=== PATIENT | male | born 1955 | race Caucasian/White ===

== ENCOUNTER → 2021-06-11 14:02 | Outpatient (CLI) | payer MEDICARE, BC, SELFPAY | PROVIDERS: Visit Provider Internal Medicine Gastroenterology | DX: Z01.812 Encounter for preprocedural laboratory examination (principal); Z11.52 Encounter for screening for COVID-19; Z12.11 Encounter for screening for malignant neoplasm of colon | CPT/HCPCS: U0003 ==

== ENCOUNTER 2021-06-14 10:46 | Day surgery (SDC) | payer MEDICARE, BC, SELFPAY ==
[2021-06-09 11:39] VITALS: BMI 28.1
[2021-06-14 11:51] VITALS: BP 130/85; PULSE 75; RESP 18; TEMP 37.2; O2SAT 98
[2021-06-14 12:21] VITALS: O2SAT 100
--- NOTE | 2021-06-14 12:40 | P.PN_ITS ---
[facility] Anesthesia Checklist - Structural Data Admitted From: Home Planned Operative Procedure/s: colonoscopy Consent for Planned Operative Procedure(s) Verified: Yes - Airway Assessment C-Spine Mobility Assessed: Yes TMJ Mobility Assessed: Yes Dentition: Good Dentition - Neurological Assessment Level of Consciousness: Awake, Alert, Appropriate - Anesthesia Plan Anesthesia Risk discussed: Yes Anesthesia Plan: Verified ASA Class: II Anesthesia Type: MAC [facility] History I have reviewed the patient's past medical history: Yes Medical History: Denies:: Cancer, Diabetes Mellitus Type 1, Diabetes Mellitus Type 2, MRSA, Seizures *Have you ever received a pneumonia vaccine?: Yes *Have you received a flu vaccine this season?: Yes Anesthesia experience/problems:: none Amputation: No Fractures: No - *Social History Smoking Status: Never smoker Alcohol Intake: never Substance Use Type: denies use *Occupational Status:: employed Housing: house *Travel in the last 8 weeks: None Family Hx:: No significant family history
--- NOTE | 2021-06-14 13:05 | P.PCN_ITS ---
[facility] Procedure Note Procedure Note:: Colonoscopy Procedure Report: Colonoscopy Endoscopist: Malick Norton II, MD Referring physician: Erick Siegel MD Date of Procedure: June 14, 2021 Equipment: Olympus 190 variable stiffness pediatric colonoscope Sedation: MAC sedation Indication: Mr. Trammell is a 66-year-old gentleman who is here for high risk screening colonoscopy. His father had colon cancer in his 70s. His paternal grandmother had colon cancer in her 60s. It has been more than 10 years since the patient's previous colonoscopy which was normal. The patient reports no abdominal pain, weight loss, change in his bowel habits or rectal bleeding. Procedure: Prior to the procedure, a history and physical exam was performed, and patient's medications and allergies were reviewed. The risks, benefits and alternatives of the sedation and procedure were discussed with the patient. All questions were answered and informed consent was obtained. The patient was brought to the procedure room. Patient identification and proposed procedure were verified by the physician and the nurse. The patient was placed in a left lateral decubitus position and the scope was passed under direct vision. Throughout the procedure, the patient's blood pressure, pulse, and oxygen saturations were monitored continuously. The colonoscopy was accomplished without difficulty. The patient tolerated the procedure well. Findings: On digital rectal examination there was normal rectal tone. There were no external hemorrhoids. The prostate was 2+, smooth, soft, symmetric without nodules. The colonoscope was introduced through the anal canal to the rectum and advanced to the cecum. The ileocecal valve and appendiceal orifice were identified. The scope was advanced a short distance into the ileum which appeared grossly normal. The scope was then withdrawn into the colon. The cecum, ascending and transverse colon and mucosa were grossly normal. There were scattered diverticuli throughout the descending and sigmoid colon (LEFT colon). The rectum itself was normal. Upon retroflexion within the rectum there were grade 1-2 internal hemorrhoids. The preparation was excellent throughout with [place] Preparation Score of 9. The cecal time was 10 minutes. Impression: 1. Mild left-sided diverticulosis 2. Grade 1-2 internal hemorrhoids Plan: Based upon the patient's family history, I would recommend repeat surveillance colonoscopy again in 5 years. I would encourage bulk fiber supplementation on a long-term daily maintenance b asis.
[2021-06-14 13:10] VITALS: BP 100/59; PULSE 80; RESP 12; TEMP 36.6; O2SAT 94
[2021-06-14 13:20] VITALS: BP 103/64; PULSE 64; RESP 16; O2SAT 96
[2021-06-14 13:30] VITALS: BP 115/74; BP 119/76; PULSE 59; PULSE 60; RESP 16; TEMP 36.6; O2SAT 97; O2SAT 98
== END 2021-06-14 13:40 | disposition home or self-care (01) ==
LOC: OUTP 10:50
PROVIDERS: PCP Family Medicine; Visit Provider Internal Medicine Gastroenterology
PROC: 0DJD8ZZ Inspection of Lower Intestinal Tract, Via Natural or Artificial Opening Endoscopic (ICD-10-PCS; CPT 45378; principal; 2021-06-14 12:00)
DX: Z12.11 Encounter for screening for malignant neoplasm of colon (principal); Z80.0 Family history of malignant neoplasm of digestive organs; K57.30 Diverticulosis of large intestine without perforation or abscess without bleeding; K64.0 First degree hemorrhoids; Z88.2 Allergy status to sulfonamides; Z79.899 Other long term (current) drug therapy
CPT/HCPCS: G0105

== ENCOUNTER → 2021-10-08 12:12 | Outpatient (CLI) | payer BC, SELFPAY ==
--- NOTE | 2021-10-08 12:56 | CA_ITS ---
APPROVED REPORT Park Keeper: JOSE MIGUEL Laterality: Bilateral Risk Factors TIA/CVA History TIA with visual disturbance Doppler Spectral Velocity Analysis ECA (R) 105.30/22.50 cm/s ECA (L) 93.50/15.00 cm/s dICA (R) 62.00/26.70 cm/s dICA (L) 94.30/30.70 cm/s Katherine (R) 61.60/25.70 cm/s Katherine (L) 98.80/36.70 cm/s pICA (R) 52.60/22.20 cm/s pICA (L) 74.80/26.90 cm/s dCCA (R) 61.10/16.20 cm/s dCCA (L) 82.80/22.20 cm/s pCCA (R) 124.60/30.10 cm/s pCCA (L) 144.50/36.60 cm/s Vert (R) 42.40/14.80 cm/s Vert (L) 41.90/16.50 cm/s ICA/CCA 1.02 ICA/CCA 1.19 Findings Duplex evaluation demonstrates stenosis of the right proximal internal carotid artery <20% with PSV <140 cm/sec, EDV <100 cm/sec, and IC/CC Ratio <4.0. Duplex evaluation demonstrates stenosis of the left proximal internal carotid artery <20% with PSV <140 cm/sec, EDV <100 cm/sec, and IC/CC Ratio <4.0. Conclusion Duplex evaluation demonstrates stenosis of the right proximal internal carotid artery <20% with PSV <140 cm/sec, EDV <100 cm/sec, and IC/CC Ratio <4.0. Duplex evaluation demonstrates stenosis of the left proximal internal carotid artery <20% with PSV <140 cm/sec, EDV <100 cm/sec, and IC/CC Ratio <4.0. Electronically signed by : Scout Vega MD 10/08/2021 14:42:05
[2021-10-08 13:06] LABS: Blood Urea Nitrogen 16 mg/dl (9-20); Estimated Glomerular Filt Rate 75 ml/min (>60); GFR (African American) 91 ML/MIN (>60)
--- NOTE | 2021-10-08 13:26 | MR_ITS ---
PROCEDURE: MR HEAD/BRAIN WO/W CON CLINICAL INDICATION: TIA COMPARISON: No exams were available for comparison TECHNIQUE: Routine multiplanar multi echo sequences are performed without gadolinium enhancement. FINDINGS: No midline shift mass intracranial. Cerebellopontine, cerebellum, and brainstem have. There is generalized atrophy with more prominent atrophic changes in the posterior the posterior lobe on both sides right more extensive and right parietal superiorly. The pituitary, optic chiasm, corpus callosum, and craniocervical junction have an unremarkable appearance. There are few small nonspecific T2 white matter hyperintensities. No acute infarction No mastoid effusion or sinus air-fluid level. Expected flow void noted in the carotid arteries and vertebrobasilar system. IMPRESSION: 1. No acute intracranial findings. 2. Generalized atrophy. More prominent areas of atrophy are present in the posterior parietal region bilaterally and in the right parietal lobe superiorly. 3. No evidence of acute infarction Dictated by: Scout Vega MD 10/09/2021 09:09 Scout Vega MD in OV 10/09/2021 09:09
== END ==
PROVIDERS: PCP Family Medicine; Visit Provider Family Medicine
DX: G45.8 Other transient cerebral ischemic attacks and related syndromes (principal); R09.89 Other specified symptoms and signs involving the circulatory and respiratory systems
CPT/HCPCS: 36415; 70553; 82565; 84520; 93880; A9576

== ENCOUNTER → 2022-03-17 09:16 | Outpatient (CLI) | payer MEDICARE, BC, SELFPAY ==
[2022-03-17 10:06] LABS: Occult Blood,Stool Negative (Negative)
== END ==
LOC: LAB 09:20
PROVIDERS: Visit Provider Nurse Practitioner Family
DX: R19.7 Diarrhea, unspecified (principal); Z90.49 Acquired absence of other specified parts of digestive tract
CPT/HCPCS: 82272; 87045; 87177; G0328

== ENCOUNTER 2022-05-11 10:24 | Emergency (ER) | payer MEDICARE, BC, SELFPAY ==
[2022-05-11 10:35] VITALS: BP 150/84; PULSE 93; RESP 16; TEMP 37; O2SAT 98; BMI 32.5
[2022-05-11 10:45] VITALS: BP 150/84; PULSE 93; RESP 16; TEMP 37; O2SAT 98
--- NOTE | 2022-05-11 10:47 | HMH.EDUTC ---
[facility] – [place] Disposition Clinical Impression: Exposure to COVID-19 virus Disposition: Home, Self-Care Condition on Discharge: Good Instructions: DI for COVID-19 (Suspected or Confirmed ), Preventing the Spread of Coronavirus Discharge Instructions Additional Instructions: *Monitor Temp, Over the counter Motrin or Tylenol as directed/as needed Tylenol every 4 hours and Motrin every 6 hours (as long as your family doctor has told you that you can take it) for fever or pain. and straight to ER if unable to lower temp less than 101.0 after medication given Follow up IMMEDIATELY for new or worsening symptoms or no Noticeable improvement over the next 48-72 hours. 911 for difficulty breathing or swallowing You were tested for today for COVID19 your test result should be back in the next 24-48 hours, you may check your results on the [facility] My Health Portal Make sure to take your Vitamins Vit. C Vit D and Zinc if you can take them Referrals: Provider,Referral, MD [Primary Care Provider] - As needed Forms: Work/School Release Medical Decision Making - Ulices Inquiry Pt receiving controlled substance: No Ulices was queried for this patient: No Vital Signs: 05/11/22 10:35 Temperature 98.6 F Temperature Source Oral Pulse Rate [Right Brachial] 93 H Respiratory Rate 16 Blood Pressure [Right Arm] 150/84 H Blood Pressure Mean [Right Arm] 106 Blood Pressure Source [Right Arm] Automatic Cuff Blood Pressure Position [Right Arm] Sitting 02 Sat by Pulse Oximetry 98 Oxygen Delivery Method Room Air Orders (Tests/Meds): ORDERS Category Date Time Status Covid-19 Nasal PCR ([facility]) Routine Lab 05/11/22 10:39 Received [facility] – [place], [place] HPI - General Stated complaint: covid test Time Seen by Provider: 05/11/22 10:47 Mode of Arrival: Ambulatory Source of Information: Patient Limitations: No Limitations Description of Symptoms (Recalled from Triage Doc. by RN): COVID TEST D/T EXPOSURE. DENIES SYMPTOMS HEENT Symptoms (Recalled from RN notes): No Resp Symptoms (Recalled from RN notes): No Skin Symptoms (Recalled from RN notes): No MS Symptoms (Recalled from RN notes): No Functional Status (Recalled from RN notes): WNL - History of Present Illness Provider Complaint: Patient state that he was recently around mother that has tested positive for COVID States that he is not having any symptoms but due to exposure he wanted to get tested - Related Data Home Medications Medication Instructions Recorded Confirmed Omeprazole Magnesium [Prilosec Otc 20 mg PO DAILY 06/14/21 05/11/22 20mg Tab] Allergies Allergy/AdvReac Type Severity Reaction Status Date / Time Horse/Equine Containing Allergy Verified 05/11/22 10:45 Products Sulfa (Sulfonamide Allergy Verified 05/11/22 10:45 Antibiotics) - Worker's Comp Is this a Worker's Comp case?: No [facility] History - Hepatitis A Screen Attestation statement:: This patient has been screened for Hepatitis A risk factors. I have reviewed the patient's past medical history: Yes Medical History: Denies:: Cancer, Diabetes Mellitus Type 1, Diabetes Mellitus Type 2, MRSA, Seizures Amputation: No Fractures: No - Social History Smoking Status: Never smoker Alcohol Intake: never Substance Use Type: denies use Occupational Status: employed Housing: house Family Hx:: No significant family history ROS Obtained: Yes All systems reviewed & no additional complaints, Yes Systems reviewed as appropriate & no additional complaints - Constitutional Constitutional: Reports system reviewed and no additional complaints, except as docu, Denies body ache, Denies chills, Denies fever(s) - ENT Ears, Nose, Mouth, and Throat: Reports system reviewed and no additional complaints, except as docu, Denies nasal congestion, Denies nasal discharge, Denies sore throat - Cardiovascular Cardiovascular: Reports system reviewed and no additional complaints, except as docu - Respiratory Respiratory
== END 2022-05-11 10:50 | disposition home or self-care (01) ==
PROVIDERS: Emergency Provider Nurse Practitioner
DX: Z20.822 Contact with and (suspected) exposure to COVID-19 (principal)
CPT/HCPCS: 99212; C9803; G0463; U0003; U0005

== ENCOUNTER 2022-08-15 18:13 | Emergency (ER) | payer MEDICARE, BC, SELFPAY ==
[2022-08-15 19:10] VITALS: BP 146/85; PULSE 97; RESP 19; TEMP 37.3; O2SAT 96; BMI 28.8
--- NOTE | 2022-08-15 19:14 | EXP.UTC ---
Discharge Plan Disposition Patient Disposition: Home, Self-Care Condition: Good Prescriptions Prescriptions: New benzonatate [benzonatate] 100 mg capsule 100 mg PO TIDP PRN (Reason: Cough) Qty: 30 0RF ondansetron 4 mg Tablet,Disintegrating 4 mg PO Q8H PRN (Reason: Nausea) Qty: 20 0RF No Action omeprazole magnesium 20 MG tablet,delayed release (DR/EC) 20 mg PO DAILY Referrals Follow up/Referrals: Erick Siegel MD [Primary Care Provider] - See instructions Activity Restrictions/Add. Instructions Additional Instructions/Restrictions: Drink plenty of fluids. Take tylenol or ibuprofen for pain or fever. Take the medications as directed. Follow up with your regular doctor. GO TO THE ER FOR ANY WORSENING SYMPTOMS Quarantine until you know the results of your covid-19 test. Notify your school or workplace of your results and follow their instructions regarding return to work/school. Clinical Impressions Clinical Impression: COVID-19 Instructions Patient Instructions: Coronavirus Disease 2019, Preventing the Spread of Coronavirus Discharge Instructions Discharge ED Provider: Nilo Flores [facility] General Stated complaint: positive home covid test Time Seen by Provider: 08/15/22 19:14 History of Present Illness Provider Complaint: he states that for the past 2 days he has had sore throat, chills, body aches and low grade fever. He tested positive for covid-19 yesterday evening. He needs a pcr covid-19 test for his job. Related Data Home Medications Medication Instructions Recorded Confirmed omeprazole magnesium 20 mg 20 mg PO DAILY Heartburn 06/14/21 05/11/22 tablet,delayed release Previous Rx's Medication Instructions Recorded benzonatate 100 mg capsule 100 mg PO TIDP PRN Cough #30 caps 08/15/22 ondansetron 4 mg disintegrating 4 mg PO Q8H PRN Nausea #20 tabs 08/15/22 tablet Allergies Allergy/AdvReac Type Severity Reaction Status Date / Time Horse/Equine Containing Allergy Verified 05/11/22 10:45 Products Sulfa (Sulfonamide Allergy Verified 05/11/22 10:45 Antibiotics) [facility] Medical History Kidney stone Migraine Surgical History History of appendectomy Social History Smoking Status: Never smoker alcohol intake: never substance use type: denies use current occupational status: employed Travel in the last 8 weeks: None housing: house current occupational exposures/hazards: Yes ROS Obtained: Yes All systems reviewed & no additional complaints except as documented Constitutional Constitutional: Reports chills and Reports fever(s) Eyes Eyes: Denies eye discharge ENT Ears, Nose, Mouth, and Throat: Reports as per HPI Cardiovascular Cardiovascular: Denies chest pain Respiratory Respiratory: Denies chest congestion and Reports cough Gastrointestinal Gastrointestingal: Reports nausea; Denies abdominal pain, constipation, cramping, diarrhea or vomiting Musculoskeletal Musculoskeletal: Denies arthralgias Integumentary/Breasts Skin/Breast: Denies rash Neurologic Neurologic: Denies paresthesias Physical Exam General General appearance: alert and in no apparent distress Head Head exam: atraumatic, normocephalic and normal inspection Eye Eye exam: Present normal appearance, PERRL and EOMI ENT ENT exam: Present normal exam, normal oropharynx, mucous membranes moist, TM's normal bilaterally and normal external ear exam Neck Neck exam: Present normal inspection, full ROM and trachea midline; Absent meningismus or lymphadenopathy Chest Chest inspection: Present normal inspection and symmetric chest wall rise; Absent tenderness Respiratory Respiratory exam: Present normal lung sounds bilaterally; Absent respiratory distress Cardiovascular Cardiovascul
[2022-08-15 19:30] VITALS: BP 146/85; PULSE 97; RESP 19; TEMP 37.3; O2SAT 96
== END 2022-08-15 19:39 | disposition home or self-care (01) ==
PROVIDERS: Emergency Provider Nurse Practitioner Family; PCP Family Medicine
DX: U07.1 COVID-19 (principal); J02.9 Acute pharyngitis, unspecified; M79.10 Myalgia, unspecified site; R50.9 Fever, unspecified; G40.909 Epilepsy, unspecified, not intractable, without status epilepticus; Z79.899 Other long term (current) drug therapy; Z88.2 Allergy status to sulfonamides; Z88.8 Allergy status to other drugs, medicaments and biological substances
CPT/HCPCS: 99213; C9803; G0463; U0003; U0005

== ENCOUNTER 2022-08-20 01:29 | Emergency (ER) | payer MEDICARE, BC, SELFPAY ==
[2022-08-20] VITALS (7 sets, daily range): BP systolic 134–154; BP diastolic 77–96; PULSE 74–87; RESP 18–19; TEMP 36.4–36.6; O2SAT 97–100; BMI 29.6
--- NOTE | 2022-08-20 02:08 | XR_ITS ---
PROCEDURE INFORMATION: Exam: XR Chest Exam date and time: 08/20/2022 2:19 AM Age: 67 years old Clinical indication: Cough and shortness of breath and other: Weakness positive covid; Additional info: R/O pna TECHNIQUE: Imaging protocol: Radiologic exam of the chest. Views: 2 views. COMPARISON: CR CXR CHEST(2 VIEWS-NOT PORTABLE) 01/11/2016 9:08 AM FINDINGS: Lungs: Small focal eventration of the right anterior hemidiaphragm. Minimal bibasilar atelectasis. Pleural spaces: Unremarkable. No pleural effusion. No pneumothorax. Heart/Mediastinum: Normal. Bones/joints: Mild multilevel thoracic spine degenerative disc space narrowing and osteophyte formation. IMPRESSION: No acute cardiopulmonary abnormality.
--- NOTE | 2022-08-20 02:21 | ECG_ITS ---
APPROVED REPORT Exam: Resting ECG HR:74 bpm ECG Measurements Heart Rate 74 AXES TN 178 P 68 QRSd 98 QRS -5 QT 379 T 53 QTc 406 Conclusion SINUS RHYTHM POSSIBLE RIGHT VENTRICULAR CONDUCTION DELAY [RSR (QR) IN V1/V2] BORDERLINE ECG UNCONFIRMED REPORT Electronically signed by : Erick Vee MD 08/20/2022 17:38:20
[2022-08-20 02:23] LABS: Basophils # 0.1 K/mm3 (0-0.2); Basophils % 1.9 % (0.1-2.0); Eosinophils # 0.3 K/mm3 (0.0-0.4); Eosinophils % 5.8 % (0.1-12.0); Hematocrit 47.2 % (42.0-52.0); Hemoglobin 15.4 g/dL (14.1-18.0); Lymphocytes # 1.3 K/mm3 (0.7-4.5); Lymphocytes % 27.2 % (10-50); Mean Corpuscular HGB Conc 32.7 g/dL (31.8-35.4); Mean Corpuscular Hemoglobin 29.7 pg (27.0-31.2); Mean Platelet Volume 7.5 fl (7.4-10.4); Monocytes # 0.2 K/mm3 (0.1-1.0); Monocytes % 4.8 % (1.7-9.3); Neutrophils # 2.9 K/mm3 (1.8-7.8); Neutrophils % 60.3 % (37.0-80.0); Platelet Count 316 K/mm3 (142-424); Red Blood Count 5.19 M/mm3 (4.60-6.20); Red Cell Distribution Width 13.6 % (11.5-17.5); White Blood Count 4.8 K/mm3 (4.8-10.8)
[2022-08-20 02:34] LABS: Alanine Aminotransferase 46 U/L (12-78); Albumin Level 4.2 g/dl (3.5-5.0); Albumin/Globulin Ratio 1.4 (1.1-1.8); Alkaline Phosphatase 223 U/L (38-126); Anion Gap 17.7 mEq/L (5-15); Aspartate Amino Transferase 33 U/L (17-59); Bilirubin,Total 0.3 mg/dl (0.2-1.3); Blood Urea Nitrogen 11 mg/dl (9-20); Calcium 9.3 mg/dl (8.4-10.2); Carbon Dioxide 29 mmol/L (22.0-30.0); Chloride 96 mmol/L (98-107); Creatinine Clearance Estimated 91 mL/min (50-200); Estimated Glomerular Filt Rate 75 ml/min (>60); GFR (African American) 90 ML/MIN (>60); Glucose 115 mg/dl (74-100); Potassium 4.7 mmoL/L (3.5-5.1); Sodium 138 mmol/L (136-145); Total Protein,Serum 7.2 g/dl (6.3-8.2)
[2022-08-20 02:47] LABS: Troponin I < 0.01 ng/ml (0.00-0.034)
--- NOTE | 2022-08-20 02:53 | HMH.EDGENADL ---
Discharge Plan Disposition Patient Disposition: Home, Self-Care Condition: Good Chief Complaint: PAIN Prescriptions Prescriptions: No Action omeprazole magnesium 20 MG tablet,delayed release (DR/EC) 20 mg PO DAILY benzonatate [benzonatate] 100 mg capsule 100 mg PO TIDP PRN (Reason: Cough) Qty: 30 0RF ondansetron 4 mg Tablet,Disintegrating 4 mg PO Q8H PRN (Reason: Nausea) Qty: 20 0RF Referrals Follow up/Referrals: Erick Siegel MD [Primary Care Provider] - See instructions Activity Restrictions/Add. Instructions Additional Instructions/Restrictions: Please continue to monitor your symptoms at home. If your condition worsens or any other concerns arise, please return to the emergency department for reassessment. Follow-up with your primary care physician. Clinical Impressions Clinical Impression: COVID-19 Discharge ED Provider: Rosa Isela Montes General Adult HPI General Chief complaint: PAIN Stated complaint: Cough,SUAREZ,Tested Covid + 08/15/22 Time Seen by Provider: 08/20/22 02:18 Mode of Arrival: Family Vehicle Source of Information: Patient Limitations: No Limitations Description of Symptoms (Recalled from ER Triage Doc. by RN): Pt c/o Headache, runny nose, cough, cold sweats, and fatigue. States he was dx with covid on Monday (08/15) and began taking Paxlovid on Monday. Denies any SOA, chest pain, or dyspnea. He did take Mucinex DM last night. Denies any motrin or ibuprofen. History of Present Illness HPI narrative: Patient is a 67-year-old male without significant medical history presenting for chief complaint of fatigue, headache, runny nose, dry cough and cold sweats in the setting of COVID-19 diagnosis on 08/15. Patient started back Slo-Bid on Monday. Denies fever at home for the past several days, chest pain, shortness of breath, productive cough, hemoptysis, abdominal pain, decreased appetite, changes in GI/. He has been feeling nauseated and extremely fatigued. Related Data Home Medications Medication Instructions Recorded Confirmed omeprazole magnesium 20 mg 20 mg PO DAILY Heartburn 06/14/21 08/20/22 tablet,delayed release Previous Rx's Medication Instructions Recorded benzonatate 100 mg capsule 100 mg PO TIDP PRN Cough #30 caps 08/15/22 ondansetron 4 mg disintegrating 4 mg PO Q8H PRN Nausea #20 tabs 08/15/22 tablet Allergies Allergy/AdvReac Type Severity Reaction Status Date / Time Horse/Equine Containing Allergy Verified 05/11/22 10:45 Products Sulfa (Sulfonamide Allergy Verified 05/11/22 10:45 Antibiotics) PFSH PFSH Medical History Kidney stone Migraine Surgical History History of appendectomy Social History Smoking Status: Never smoker alcohol intake: never substance use type: denies use current occupational status: employed Travel in the last 8 weeks: None housing: house current occupational exposures/hazards: Yes ROS Obtained: Yes Systems reviewed as appropriate & no additional complaints except as documented Constitutional Constitutional: Reports body ache, Reports chills, Reports fatigue, Denies fever(s) and Reports headache(s) Eyes Eyes: Denies change in vision and Denies eye pain ENT Ears, Nose, Mouth, and Throat: Reports headache(s), Denies nasal congestion, Reports nasal discharge, Denies neck pain, Reports post nasal drip and Denies sore throat Cardiovascular Cardiovascular: Denies chest pain at rest, Denies chest pain with activity, Denies dyspnea on exertion, Denies leg edema and Denies palpitations Respiratory Respiratory: Denies shortness of breath, Reports non-productive cough, Denies dyspnea on exertion and Denies hemoptysis Gastrointestinal Gastrointestingal: Reports nausea; Denies abdominal pain, diarrhea or vomiting Genitourinary M
[2022-08-20 05:52] LABS: Troponin I < 0.01 ng/ml (0.00-0.034)
== END 2022-08-20 06:40 | disposition home or self-care (01) ==
PROVIDERS: Emergency Provider Emergency Medicine; PCP Family Medicine
DX: U07.1 COVID-19 (principal); G43.909 Migraine, unspecified, not intractable, without status migrainosus; R11.0 Nausea; M79.10 Myalgia, unspecified site; R53.82 Chronic fatigue, unspecified; R05.9 Cough, unspecified; R61 Generalized hyperhidrosis; Z79.899 Other long term (current) drug therapy; Z88.2 Allergy status to sulfonamides; Z88.8 Allergy status to other drugs, medicaments and biological substances; Z87.442 Personal history of urinary calculi
CPT/HCPCS: 71046; 80053; 84484; 85025; 93005; 96361; 96374; 96375; 99285

== ENCOUNTER 2024-01-30 10:27 | Outpatient (CLI) | payer MEDICARE, BC, SELFPAY ==
[2024-01-30 11:05] LABS: Basophils # 0.1 K/mm3 (0-0.2); Basophils % 0.7 % (0.1-2.0); Eosinophils # 0.2 K/mm3 (0.0-0.4); Eosinophils % 3.5 % (0.1-12.0); Hematocrit 45.8 % (42.0-52.0); Hemoglobin 15.4 g/dL (14.1-18.0); Lymphocytes # 1.7 K/mm3 (0.7-4.5); Lymphocytes % 25.4 % (10-50); Mean Corpuscular HGB Conc 33.5 g/dL (31.8-35.4); Mean Corpuscular Hemoglobin 31.7 pg (27.0-31.2); Mean Corpuscular Volume 94.5 fl (80-94); Mean Platelet Volume 7.8 fl (7.4-10.4); Monocytes # 0.3 K/mm3 (0.1-1.0); Monocytes % 4.9 % (1.7-9.3); Neutrophils # 4.3 K/mm3 (1.8-7.8); Neutrophils % 65.5 % (37.0-80.0); Platelet Count 330 K/mm3 (142-424); Red Blood Count 4.85 M/mm3 (4.60-6.20); Red Cell Distribution Width 13.6 % (11.5-17.5); White Blood Count 6.6 K/mm3 (4.8-10.8)
[2024-01-30 11:25] LABS: Chloride 101 mmol/L (98-107); Sodium 135 mmol/L (136-145)
[2024-01-30 11:26] LABS: Potassium 5.3 mmoL/L (3.5-5.1)
[2024-01-30 11:28] LABS: Alanine Aminotransferase 40 U/L (12-78); Albumin Level 4.4 g/dl (3.5-5.0); Alkaline Phosphatase 96 U/L (38-126); Anion Gap 11.3 mEq/L (5-15); Aspartate Amino Transferase 32 U/L (17-59); Bilirubin,Direct 0.2 mg/dl (0.0-0.4); Bilirubin,Indirect 0.2 mg/dL (0.0-0.9); Bilirubin,Total 0.4 mg/dl (0.2-1.3); Bilirubin,Unconjugated 0.2 mg/dL (0.0-1.1); Blood Urea Nitrogen 20 mg/dl (9-20); Calcium 9.9 mg/dl (8.4-10.2); Carbon Dioxide 28 mmol/L (22.0-30.0); Cholesterol 239 mg/dl (140-200); Estimated Glomerular Filt Rate 55 ml/min (>60); GFR (African American) 67 ML/MIN (>60); Glucose 92 mg/dl (74-100); Total Protein,Serum 6.9 g/dl (6.3-8.2); Triglycerides 200 mg/dl (30-150); VLDL Cholesterol 40 mg/dL (0-40)
[2024-01-30 11:29] LABS: Chol/HDL Ratio 5.6 (1-3.5); HDL Cholesterol 43 mg/dl (40-60)
[2024-01-30 11:43] LABS: Free T4 (Free Thyroxine) 1.45 ng/dl (0.78-2.19)
[2024-01-30 11:48] LABS: Direct LDL Cholesterol 116.67 mg/dL (100-129)
[2024-01-30 12:00] LABS: Thyroid Stimulating Hormone 1.16 uIU/mL (0.465-4.68)
== END 2024-01-30 23:59 ==
LOC: LAB 10:28
PROVIDERS: PCP Internal Medicine; Visit Provider Nurse Practitioner Family
DX: I10 Essential (primary) hypertension (principal); R06.00 Dyspnea, unspecified; R42 Dizziness and giddiness; R94.31 Abnormal electrocardiogram [ECG] [EKG]
CPT/HCPCS: 36415; 80048; 80061; 80076; 83735; 84439; 84443; 85025

== ENCOUNTER 2024-02-07 08:47 | Outpatient (CLI) | payer BC, SELFPAY ==
--- NOTE | 2024-02-07 09:03 | US_ITS ---
FINAL REPORT CLINICAL HISTORY: RUQ PAIN COMPARISON: None FINDINGS: Sonographic images of the right upper quadrant were obtained. The pancreas is partially obscured. There is fatty infiltration of the liver. The gallbladder has been surgically resected. There is no evidence of biliary ductal dilatation.The common duct measures 3 mm. Limited images of the right kidney are unremarkable. IMPRESSION: Fatty infiltration of the liver. Prior cholecystectomy. Reviewed, Interpreted and Dictated by Yogesh Craig MD Transcribed by Meg Sanchez Authenticated and [facility]
== END 2024-02-07 23:59 ==
LOC: RAD 08:48
PROVIDERS: PCP Internal Medicine; Visit Provider Internal Medicine
DX: R10.11 Right upper quadrant pain (principal)
CPT/HCPCS: 76705

== ENCOUNTER 2024-02-15 10:51 | Outpatient (CLI) | payer BC, SELFPAY ==
--- NOTE | 2024-02-15 10:51 | NM_ITS ---
APPROVED REPORT Exam: Nuclear Stress Test Indication: soa..fatigue Patient Location: Outpatient Stress Tech: Rashmi Gerard [place] Tech:HUANG Harris RT(R)(N) Ht: 5 ft 7 in Wt: 200 lbs HR: 79 bpm BP: 132/89 mmHg BSA: 2.02 m2 TID: 0.81 BMI: 31.3 History: soa..fatigue Procedure: Patient exercised on Reid protocol 5 minutes and sec, resting heart rate 79 bpm, resting blood pressure 132/89 mmHg, with exercise maximum heart rate achived was 152 bpm which is 99 % of the maximum predicted heart rate and blood pressure was 198/76 mmHg. Test was stopped due to fatigue..soa. Patient denied any complaint of chest pain. Patient has fair exercise capacity, achieved 4.6 METs of workload on treadmill, the blood pressure response to exercise was borderline exaggerated. Cardiac Stress and Resting SPECT Images: Cardiac Stress and Resting SPECT images were obtained using technetium 99m Myoview 31.6 mCi stress and 10.98 mCi at rest. Raw images demonstrate significant diaphragmatic overlap with the inferior border of the LV wall. This may affect the diagnostic interpretation of the study findings. Resting and stress imaging in supine position demonstrate a large-sized, moedrate, fixed perfusion defect in the inferior LV wall. This is no longer visualized with prone stress imaging. Findings are suggestive of diaphragmatic attenuation. Gated imaging demonstrates normal global and regional LV systolic function. LVEF is calculated at 62%. Conclusion: Diaphragmatic attenuation is present. No definite evidence of fixed or reversible perfusion defects. Gated imaging demonstrates normal global and regional LV systolic function. LVEF is calculated at 62%. Of note, the patient's BP at peak stress was borderline exaggerated (SBP 198 mmHg). BP control is recommended. Electronically signed by : Oralia Bustillo MD 02/18/2024 17:20:32
--- NOTE | 2024-02-15 11:47 | CA_ITS ---
APPROVED REPORT EXAM: Comprehensive 2D, Doppler, and color-flow Echocardiogram Local Coordinator: Kandi Mejia RVT Ht: 5 ft 7 in Wt: 218lbs BSA: 2.10 BP: 132/64 mmHg Indications: SOA,ABN EKG,HTN TDS-LIMITED WINDOWS OVERLAYING LUNG AND BODY HABITUS 2D Dimensions LA Volume 39.70 mL LA Volume Index 18.90 mL/m2 (M/F) 16-34 M-Mode Dimensions RVDd 1.69 cm (0.9-2.6) LA Diam 3.87 cm (1.9-4.0) LVDd 4.01 cm (3.5-5.7) LVDs 2.65 cm (3.5-5.7) IVSd 1.04 cm (0.6-1.1) PWd 0.68 cm (0.6-1.1) EF (Teich) 63.40% FS 33.90% EDV (Teich) 70.40 mL ESV (Teich) 25.80 mL LV Diastology E Decel Time 150 (160-240 msec) E/A Ratio 0.6 Aortic Valve BLADIMIR Index 2.31 cm2/m2 AoV Peak Noe. 95.0 (50-130 cm/s) AO Peak GR. 3.60 mmHg AO Mean GR. 2.00 (<5 mmHg) AO VTI 16.5 (18-25 cm) BLADIMIR (VTI) 4.97 (2.5-4.5 cm2) Mitral Valve MV E Max Noe. 68.0 (40-130 cm/s) MV A Velocity 107.0 (40-130 cm/s) E/A Ratio 0.63 MV PHT 44.0 ms Pulmonary Valve PV Peak Velocity 70.0 (50-150 cm/s) Tricuspid Valve TR P. Velocity 174.00 cm/s RAP Estimate 10.00 mmHg RVSP 22.20 mmHg Left Ventricle The left ventricle is normal size. The left ventricular systolic function is normal. The left ventricular ejection fraction is within the normal range. There is normal left ventricular wall thickness. There is normal LV segmental wall motion. The left ventricular diastolic function is normal. LVEF is 55%. Right Ventricle Right ventricle is mildly dilated. The right ventricular systolic function is normal. There is no Doppler evidence of interatrial shunt. Atria The left atrium size is normal. The right atrium size is normal. There is no Doppler evidence of interatrial shunt. Aortic Valve The aortic valve opens well. There is no aortic valvular stenosis. No aortic regurgitation is present. Mitral Valve The mitral valve is normal in structure. No evidence of mitral valve stenosis. Trace mitral regurgitation. Tricuspid Valve The tricuspid valve leaflets are thin and pliable. Trace tricuspid regurgitation. There is insufficient TR jet to estimate RVSP. Pulmonic Valve The pulmonary valve is normal in structure. Trace pulmonic regurgitation. Great Vessels The aortic root is normal in size. The ascending aorta is mildly dilated, measuring 3.8 cm in diameter. IVC is normal in size and collapses >50% with inspiration. Pericardium There is no pericardial effusion. Other Information Study Quality: Fair Conclusion Normal biventricular systolic function. No significant valvular stenosis or regurgitation. The ascending aorta is mildly dilated, measuring 3.8 cm in diameter. Electronically signed by : Oralia Bustillo MD 02/19/2024 20:01:38
[2024-02-15] MEDS: SODIUM CHLORIDE 0.9% 10ML SYR (RAD ONLY) 10 ML IV ×2 (13:04)
[2024-02-15] MEDS: ISOTOPE MYOVIEW (PER STUDY) 1 DOSE IV (13:04)
--- NOTE | 2024-02-15 13:47 | CA_ITS ---
APPROVED REPORT Exam: Exercise Treadmill Technologist: Rashmi Ac, Ht: 5 ft 7 in Wt: 218 lbs BSA: 2.10 m2 HR: 72 bpm BP: 138/85 mmHg Medical History Medications: Lisinopril,,,,, Aspirin,,,,, Naproxen,,,,, Sumatriptan Succinate,,,,, Omeprazole MAGNESiUM,,,,, Stress Test Details Test: Reid HR Resting HR: 79 bpm Max Heart Rate (APMHR): 153 bpm Max HR Achieved: 152 bpm Target HR (85% APMHR): 130 bpm % of APMHR: 99 Recovery HR: 104 bpm HR response to stress: Normal HR response to stress BP Resting BP: 132.0/89.0 mmHg Max BP: 198.0/76.0 mmHg Recovery BP: 153.0/77.0 mmHg BP response to stress: Normal blood pressure response to stress. ECG Resting ECG: NSR, RBBB Stress EC mm upsloping ST depression Arrhythmia: Occasional PVCs Recovery ECG: Return to baseline within 3 minutes of recovery Recovery Arrhythmia: None Clinical Exercise duration: 05:00 min Highest Stage Achieved: Exercise capacity: 4.6 METs Overall Exercise Capacity for Age: Fair Stress ECG Conclusion The patient was able to exercise for a total of 5:00 on Stage I Reid Protocol. (stage I held to completion). She achieved a total of 4.6 METs. She has fair exercise capacity compared to age and sex matched peers. She has normal HR and BP response to exercise. Max HR: 152 % of PM: 99% Max BP: 196/90 METs: 4.6 Test stopped due to: SOA Symptoms: Dyspnea, No CP. Arrhythmias/Ectopy: Occasional PVCs ST-T Change: [address] depression at peak stress. Conclusion: Fair exercise capacity. Non-diagnostic EKG stress test due to baseline RBBB. Myoview images reported separately. Test Summary REST . . . . . . . Sitting REST . . . . . . . Standing REST 03:13 0.0 0.0 79 . 132/ 89 . . Stage 1 01:00 10.0 1.7 115 . . . . Stage 1 02:00 10.0 1.7 133 . . . . Stage 1 . . . . . . . Stage held Stage 1 03:00 10.0 1.7 141 . . . . Stage 1 04:00 10.0 1.7 146 . . . . Stage 1 . . . . . . . Stage resumed Stage 1 05:00 10.0 1.7 152 . . . Stop exercise at 05:00 RECOVERY 01:00 0.0 0.0 133 . . . . RECOVERY 02:00 0.0 0.0 120 . . . . RECOVERY 03:00 0.0 0.0 112 . 198/ 76 . . RECOVERY 04:00 0.0 0.0 106 . 163/ 79 . . RECOVERY 05:00 0.0 0.0 103 . 153/ 77 . . RECOVERY 05:24 0.0 0.0 103 . 153/ 77 . . Electronically signed by : Oralia Bustillo MD 02/18/2024 17:15:21
== END 2024-02-15 23:59 ==
LOC: RAD 10:51
PROVIDERS: PCP Internal Medicine; Visit Provider Nurse Practitioner Family
DX: R06.00 Dyspnea, unspecified (principal); R42 Dizziness and giddiness; R94.31 Abnormal electrocardiogram [ECG] [EKG]; I10 Essential (primary) hypertension
CPT/HCPCS: 78452; 93017; 93018; 93306; A9502

== ENCOUNTER 2024-02-24 13:01 | Emergency (ER) | payer BC, SELFPAY ==
[2024-02-24] VITALS (9 sets, daily range): BP systolic 134–147; BP diastolic 84–94; PULSE 66–86; RESP 12–18; TEMP 36.5–36.7; O2SAT 96–100; BMI 30.4
--- NOTE | 2024-02-24 13:08 | ECG_ITS ---
APPROVED REPORT Exam: Resting ECG HR:71 bpm ECG Measurements Heart Rate 71 AXES FL 138 P -79 QRSd 128 QRS -4 QT 394 T 39 QTc 417 Conclusion Sinus rhythm Right bundle branch block Electronically signed by : OSCAR CAMPBELL, 02/24/2024 15:28:07
[2024-02-24 13:25] LABS: Chloride 105 mmol/L (98-107); Sodium 138 mmol/L (136-145)
[2024-02-24 13:26] LABS: Potassium 5.3 mmoL/L (3.5-5.1)
[2024-02-24 13:28] LABS: Alanine Aminotransferase 28 U/L (12-78); Albumin Level 4.1 g/dl (3.5-5.0); Albumin/Globulin Ratio 1.5 (1.1-1.8); Alkaline Phosphatase 85 U/L (38-126); Anion Gap 8.3 mEq/L (5-15); Aspartate Amino Transferase 30 U/L (17-59); Bilirubin,Total 0.5 mg/dl (0.2-1.3); Blood Urea Nitrogen 17 mg/dl (9-20); Calcium 10.1 mg/dl (8.4-10.2); Carbon Dioxide 30 mmol/L (22.0-30.0); Creatinine Clearance Estimated 92 mL/min (50-200); Estimated Glomerular Filt Rate 75 ml/min (>60); GFR (African American) 90 ML/MIN (>60); Globulin 2.8 g/dL (1.3-3.2); Glucose 100 mg/dl (74-100); Total Protein,Serum 6.9 g/dl (6.3-8.2)
[2024-02-24] MEDS: KETOROLAC 30MG/ML VIAL 15 MG IV (13:32)
[2024-02-24] MEDS: IRBESARTAN 150MG TAB 150 MG PO (13:46)
[2024-02-24 13:48] LABS: Troponin I < 0.01 ng/ml (0.00-0.034)
--- NOTE | 2024-02-24 14:07 | PC.NURSE ---
pt states he just took tylenol before arrival. aware
--- NOTE | 2024-02-24 14:13 | HMH.EDGENADL ---
Discharge Plan Disposition Patient Disposition: Home, Self-Care Prescriptions Prescriptions: New irbesartan 150 mg tablet 150 mg PO DAILY Qty: 30 2RF No Action sumatriptan succinate 100 mg tablet 100 mg PO ONCE PRN lisinopril 10 mg tablet 10 mg PO DAILY naproxen 500 mg tablet 500 mg PO DAILY PRN aspirin [Adult Low Dose Aspirin] 81 mg tablet,delayed release (DR/EC) 81 mg PO DAILY Qty: 30 5RF omeprazole magnesium 20 MG tablet,delayed release (DR/EC) 20 mg PO DAILY Referrals Follow up/Referrals: Henrique Shaver MD [Primary Care Provider] - See instructions Activity Restrictions/Add. Instructions Additional Instructions/Restrictions: At this time it was felt you are safe to be discharged home. If new or worsening symptoms please do not hesitate to return the emergency department. If symptoms persist please follow-up with your family doctor as you are able. Clinical Impressions Clinical Impression: Headache, Hypertension Discharge ED Provider: Yogesh Basilio General Adult HPI <Yogesh Basilio MD - Last Filed: 02/24/24 15:01> General Chief complaint: Headache Stated complaint: hbp, headache Time Seen by Provider: 02/24/24 13:10 Mode of Arrival: Ambulatory Source of Information: Patient Limitations: No Limitations Description of Symptoms (Recalled from ER Triage Doc. by RN): pt presents to ED with c/o headache and high blood pressure reading at home. pt reports that he does take BP medication. pt reports that he took his bp medication this morning and approx 3 hrs after his bp reading was 159/103 at home. pt reports headache starts at back of head into the front of his head into his eyes. History of Present Illness HPI narrative: 68-year-old male history of hypertension presenting with hypertension and headache has had numerous pressure medication change in the last couple of weeks with his family doctor. Currently on losartan 50 mg daily. Has noticed that his blood pressure has been high over the last couple of days, called his family doctor, they recommended doubling his dose. He took 1 dose of 100 mg losartan yesterday, blood pressure was 130/90 throughout the day yesterday. Today, blood pressure was higher, but he only took one of his 50 mg losartan. 150-160/100. Was also having headache, so came to the emergency department. Did not take the second dose of his losartan. No other associated symptoms. Please note that above description of symptoms, in this electronic medical record under categorization of recalled from ER triage doctor by RN are reflective of an initial nursing assessment, however, is not reflective of my full history and physical exam that was personally taken and clarified. Consequentially, this preceding description of symptoms, which may include the patient's categorized chief complaint in the EMR, do not reflect my personal clinical impression, and the ultimate description of history of present illness and patient stated complaints should be deferred to this section of the note. Unless stated otherwise or congruent with this section of the note, additional signs, symptoms, or incongruence should be interpreted as inaccurate with my clinical impression. Related Data Home Medications Medication Instructions Recorded Confirmed omeprazole magnesium 20 mg 20 mg PO DAILY Heartburn 06/14/21 01/30/24 tablet,delayed release lisinopril 10 mg tablet 10 mg PO DAILY 01/30/24 01/30/24 naproxen 500 mg tablet 500 mg PO DAILY PRN 01/30/24 01/30/24 sumatriptan succinate 100 mg tablet 100 mg PO ONCE PRN 01/30/24 01/30/24 Previous Rx's Medication Instructions Recorded aspirin 81 mg tablet,delayed 81 mg PO DAILY #30 tabs 01/30/24 release (Adult Low Dose Aspirin) irbesartan 150 mg tablet 150 mg PO DAILY #30 tabs 02/24/24 Allergies Allergy/AdvReac Type Severity Reaction Status Date / Time Horse/Equine Containing Allergy Verified 01/30/24 09:37 Products Sulfa (Sulfonamide Allergy Verified 01/30/24 09:37 Antibiotics) [facility] <Yogesh Basilio MD - Last Filed: 02/24/24 15:01> [facility] Disclaimer: The information contained in this section may have been updated after the patient was seen, as this information can be updated by other users. Medical History (Updated 02/24/24 @ 15:00 by Yogesh Basilio MD) HTN (hypertension) Abnormal electrocardiogram [ECG] [EKG] Kidney stone Migraine Surgical History History of appendectomy Family History (Updated 01/30/24 @ 10:06 by Charlene Hernandez RN) Father Coronary artery disease Grandmother Coronary artery disease Mother Atrial fibrillation Social History Smoking Status: Never smoker alcohol intake: never substance use type: denies use current occupational status: employed Travel in the last 8 weeks: None housing: house current occupational exposures/hazards: Yes <Yogesh Basilio MD - Last Filed: 02/24/24 15:01> ROS Obtained: Yes All systems reviewed & no additional complaints except as documented Physical Exam <Yogesh Basilio MD - Last Filed: 02/24/24 15:01> General General appearance: alert and in no apparent distress Head Head exam: atraumatic and normocephalic Eye Eye exam: Present normal appearance, PERRL and EOMI ENT ENT exam: Present mucous membranes moist Neck Neck exam: Present normal inspection, full ROM and trachea midline Respiratory Respiratory exam: Absent respiratory distress, wheezes, stridor, accessory muscle use or prolonged expiratory phase Cardiovascular Cardiovascular exam: Present normal rhythm Abdominal Exam Abdominal exam: Present soft; Absent distention, tenderness, guarding, rebound or rigidity Extremities Exam Extremities exam: Absent edema Neurological Exam Neurological exam: Present alert, oriented X3, CN II-XII intact and normal gait; Absent motor sensory deficit Skin Skin exam: Present warm and dry; Absent diaphoresis or erythema Medical Decision Making <Yogesh Basilio MD - Last Filed: 02/24/24 15:01> Medical Records Medical records reviewed: Yes I reviewed the patient's medical records. [place] Inquiry Pt receiving controlled substance: No [place] was queried for this patient: No Vital Signs: 02/24/24 13:02 02/24/24 13:23 02/24/24 13:30 Temperature 97.7 F Temperature Source Oral Pulse Rate 71 70 Pulse Rate [Left Radial] 73 Respiratory Rate 15 13 12 Blood Pressure 147/93 H 134/90 Blood Pressure [Right Arm] 134/94 H Blood Pressure Mean [Right Arm] 107 02 Sat by Pulse Oximetry 99 97 98 Oxygen Delivery Method Room Air Room Air 02/24/24 14:00 02/24/24 14:30 02/24/24 15:00 Temperature Temperature Source Pulse Rate 70 69 Pulse Rate [Left Radial] Respiratory Rate 12 12 12 Blood Pressure 140/88 135/87 135/86 Blood Pressure [Right Arm] Blood Pressure Mean [Right Arm] 02 Sat by Pulse Oximetry 98 99 Oxygen Delivery Method Room Air Room Air 02/24/24 15:30 Temperature Temperature Source Pulse Rate 66 Pulse Rate [Left Radial] Respiratory Rate 13 Blood Pressure 138/84 Blood Pressure [Right Arm] Blood Pressure Mean [Right Arm] 02 Sat by Pulse Oximetry 99 Oxygen Delivery Method Room Air Lab Data Lab Results 02/24/24 13:14: WBC 6.1, RBC 4.79, Hgb 14.7, Hct 44.7, MCV 93.3, MCH 30.7, MCHC 32.9, RDW 13.3, Plt Count 306, MPV 8.1, Neut % (Auto) 63.4, Lymph % (Auto) 27.2, [place] % (Auto) 5.5, Eos % (Auto) 2.8, Baso % (Auto) 1.0, Neut # (Auto) 3.9, Lymph # (Auto) 1.7, [place] # (Auto) 0.3, Eos # (Auto) 0.2, Baso # (Auto) 0.1, Sodium 138, Potassium 5.3 H, Chloride 105, Carbon Dioxide 30, Anion Gap 8.3, BUN 17, Creatinine 1.00, Estimated Creat Clear 92, Estimated GFR 75, Est GFR ( Amer) 90, Glucose 100, Calcium 10.1, Total Bilirubin 0.5, AST 30, ALT 28, Alkaline Phosphatase 85, Troponin I < 0.01, Total Protein 6.9, Albumin 4.1, Globulin 2.8, Albumin/Globulin Ratio 1.5 02/24/24 13:14 02/24/24 13:14 Orders (Tests/Meds): ED MEDICATIONS Generic Name Dose Route Start Last Admin Trade Name Freq PRN Reason Stop Dose Admin Lactated Ringer's 1,000 mls @ 999 mls/hr 02/24/24 14:59 02/24/24 15:35 Lactated Ringer's 1000 Ml Bag IV 02/24/24 15:59 999 mls/hr .Q1H1M ONE Administration Magnesium Sulfate 2 gm in 50 mls @ 50 mls/hr 02/24/24 14:59 02/24/24 15:35 Magnesium Sulfate 2gm/50ml Premix IV 02/24/24 15:58 50 mls/hr ONCE ONE Administration Discontinued Medications Generic Name Dose Route Start Last Admin Trade Name Freq PRN Reason Stop Dose Admin Acetaminophen 1,000 mg 02/24/24 13:11 02/24/24 14:07 Acetaminophen 1,000mg/100ml Vial IV 02/24/24 13:12 Not Given ONCE ONE Dexamethasone Sodium Phosphate 10 mg 02/24/24 14:58 02/24/24 15:35 Dexamethasone 4mg/Ml 1ml Vial IV 02/24/24 14:59 10 mg ONCE ONE Administration Diphenhydramine HCl 25 mg 02/24/24 14:58 02/24/24 15:34 Diphenhydramine 50mg/Ml Vial IV 02/24/24 14:59 25 mg ONCE ONE Administration Irbesartan 150 mg 02/24/24 13:25 02/24/24 13:46 Irbesartan 150mg Tab PO 02/24/24 13:26 150 mg ONCE ONE Administration Ketorolac Tromethamine 15 mg 02/24/24 13:11 02/24/24 13:32 Ketorolac 30mg/Ml Vial IV 02/24/24 13:12 15 mg ONCE ONE Administration Labetalol HCl 10 mg 02/24/24 13:11 02/24/24 13:26 Labetalol 20mg/4ml Syringe IV 02/24/24 13:12 Not Given ONCE ONE Prochlorperazine Edisylate 10 mg 02/24/24 14:58 02/24/24 15:35 Prochlorperazine 10mg/2ml Vial IV 02/24/24 14:59 10 mg ONCE ONE Administration ORDERS Category Date Time Status CBC w/Auto Diff [Complete Blood Count Auto Diff] Stat Lab 02/24/24 13:14 Completed CMP [Comprehensive Metabolic Panel] Stat Lab 02/24/24 13:14 Completed Trop I [Troponin I] Stat Lab 02/24/24 13:14 Completed Troponin I Q3H Lab 02/24/24 16:15 Ordered Troponin I Q3H Lab 02/24/24 19:15 Ordered HEART Score History (anamnesis): Slightly suspicious ECG: Normal Age: >65 years Risk factors: 1-2 risk factors Troponin: </= normal limit HEART Score: 3 Medical Decision Narrative: 68-year-old male history of hypertension presenting with hypertension and headache has had numerous pressure medication change in the last couple of weeks with his family doctor. Currently on losartan 50 mg daily. Has noticed that his blood pressure has been high over the last couple of days, called his family doctor, they recommended doubling his dose. He took 1 dose of 100 mg losartan yesterday, blood pressure was 130/90 throughout the day yesterday. Today, blood pressure was higher, but he only took one of his 50 mg losartan. 150-160/100. Was also having headache, so came to the emergency department. Did not take the second dose of his losartan. No other associated symptoms. History obtained with patient. On arrival, patient very well-appearing. Systolic 160/100 diastolic. Cardiac exam within normal limits, pulses equal and symmetric. Abdomen is soft, patient in no acute distress. Neurologically intact. Patient was given irbesartan 150 mg for symptomatic management and correction of underlying abnormalities. Workup independently interpreted and significant for actionable CBC, chemistry, troponin. See radiology read for full review of final results. Independent interpretation of EKG shows sinus rhythm 71 beats a minute no ST or T wave changes concerning for acute ischemia. [place] QT intervals within normal limits. QRS widened with right bundle branch block morphology. Heart score 3. On reevaluation, patient still having headache even after blood pressure improved. Headache cocktail administered. Prior to reevaluation, care handed off to oncoming physician. <Brodie Ennis MD - Last Filed: 02/24/24 15:58> Vital Signs: 02/24/24 13:02 02/24/24 13:23 02/24/24 13:30 Temperature 97.7 F Temperature Source Oral Pulse Rate 71 70 Pulse Rate [Left Radial] 73 Respiratory Rate 15 13 12 Blood Pressure 147/93 H 134/90 Blood Pressure [Right Arm] 134/94 H Blood Pressure Mean [Right Arm] 107 02 Sat by Pulse Oximetry 99 97 98 Oxygen Delivery Method Room Air Room Air 02/24/24 14:00 02/24/24 14:30 02/24/24 15:00 Temperature Temperature Source Pulse Rate 70 69 Pulse Rate [Left Radial] Respiratory Rate 12 12 12 Blood Pressure 140/88 135/87 135/86 Blood Pressure [Right Arm] Blood Pressure Mean [Right Arm] 02 Sat by Pulse Oximetry 98 99 Oxygen Delivery Method Room Air Room Air 02/24/24 15:30 Temperature Temperature Source Pulse Rate 66 Pulse Rate [Left Radial] Respiratory Rate 13 Blood Pressure 138/84 Blood Pressure [Right Arm] Blood Pressure Mean [Right Arm] 02 Sat by Pulse Oximetry 99 Oxygen Delivery Method Room Air Lab Data Lab Results 02/24/24 13:14: WBC 6.1, RBC 4.79, Hgb 14.7, Hct 44.7, MCV 93.3, MCH 30.7, MCHC 32.9, RDW 13.3, Plt Count 306, MPV 8.1, Neut % (Auto) 63.4, Lymph % (Auto) 27.2, [place] % (Auto) 5.5, Eos % (Auto) 2.8, Baso % (Auto) 1.0, Neut # (Auto) 3.9, Lymph # (Auto) 1.7, [place] # (Auto) 0.3, Eos # (Auto) 0.2, Baso # (Auto) 0.1, Sodium 138, Potassium 5.3 H, Chloride 105, Carbon Dioxide 30, Anion Gap 8.3, BUN 17, Creatinine 1.00, Estimated Creat Clear 92, Estimated GFR 75, Est GFR ( Amer) 90, Glucose 100, Calcium 10.1, Total Bilirubin 0.5, AST 30, ALT 28, Alkaline Phosphatase 85, Troponin I < 0.01, Total Protein 6.9, Albumin 4.1, Globulin 2.8, Albumin/Globulin Ratio 1.5 Orders (Tests/Meds): ED MEDICATIONS Generic Name Dose Route Start Last Admin Trade Name Freq PRN Reason Stop Dose Admin Lactated Ringer's 1,000 mls @ 999 mls/hr 02/24/24 14:59 02/24/24 15:35 Lactated Ringer's 1000 Ml Bag IV 02/24/24 15:59 999 mls/hr .Q1H1M ONE Administration Magnesium Sulfate 2 gm in 50 mls @ 50 mls/hr 02/24/24 14:59 02/24/24 15:35 Magnesium Sulfate 2gm/50ml Premix IV 02/24/24 15:58 50 mls/hr ONCE ONE Administration Discontinued Medications Generic Name Dose Route Start Last Admin Trade Name Freq PRN Reason Stop Dose Admin Acetaminophen 1,000 mg 02/24/24 13:11 02/24/24 14:07 Acetaminophen 1,000mg/100ml Vial IV 02/24/24 13:12 Not Given ONCE ONE Dexamethasone Sodium Phosphate 10 mg 02/24/24 14:58 02/24/24 15:35 Dexamethasone 4mg/Ml 1ml Vial IV 02/24/24 14:59 10 mg ONCE ONE Administration Diphenhydramine HCl 25 mg 02/24/24 14:58 02/24/24 15:34 Diphenhydramine 50mg/Ml Vial IV 02/24/24 14:59 25 mg ONCE ONE Administration Irbesartan 150 mg 02/24/24 13:25 02/24/24 13:46 Irbesartan 150mg Tab PO 02/24/24 13:26 150 mg ONCE ONE Administration Ketorolac Tromethamine 15 mg 02/24/24 13:11 02/24/24 13:32 Ketorolac 30mg/Ml Vial IV 02/24/24 13:12 15 mg ONCE ONE Administration Labetalol HCl 10 mg 02/24/24 13:11 02/24/24 13:26 Labetalol 20mg/4ml Syringe IV 02/24/24 13:12 Not Given ONCE ONE Prochlorperazine Edisylate 10 mg 02/24/24 14:58 02/24/24 15:35 Prochlorperazine 10mg/2ml Vial IV 02/24/24 14:59 10 mg ONCE ONE Administration ORDERS Category Date Time Status CBC w/Auto Diff [Complete Blood Count Auto Diff] Stat Lab 02/24/24 13:14 Completed CMP [Comprehensive Metabolic Panel] Stat Lab 02/24/24 13:14 Completed Trop I [Troponin I] Stat Lab 02/24/24 13:14 Completed Troponin I Q3H Lab 02/24/24 16:15 Ordered Troponin I Q3H Lab 02/24/24 19:15 Ordered HEART Score HEART Score: 3 Medical Decision Narrative: 68-year-old male history of hypertension presenting with hypertension and headache has had numerous pressure medication change in the last couple of weeks with his family doctor. Currently on losartan 50 mg daily. Has noticed that his blood pressure has been high over the last couple of days, called his family doctor, they recommended doubling his dose. He took 1 dose of 100 mg losartan yesterday, blood pressure was 130/90 throughout the day yesterday. Today, blood pressure was higher, but he only took one of his 50 mg losartan. 150-160/100. Was also having headache, so came to the emergency department. Did not take the second dose of his losartan. No other associated symptoms. History obtained with patient. On arrival, patient very well-appearing. Systolic 160/100 diastolic. Cardiac exam within normal limits, pulses equal and symmetric. Abdomen is soft, patient in no acute distress. Neurologically intact. Patient was given irbesartan 150 mg for symptomatic management and correction of underlying abnormalities. Workup independently interpreted and significant for actionable CBC, chemistry, troponin. See radiology read for full review of final results. Independent interpretation of EKG shows sinus rhythm 71 beats a minute no ST or T wave changes concerning for acute ischemia. [place] QT intervals within normal limits. QRS widened with right bundle branch block morphology. Heart score 3. On reevaluation, patient still having headache even after blood pressure improved. Headache cocktail administered. Prior to reevaluation, care handed off to oncoming physician. Brodie Ennis: Upon assumption of care patient was hemodynamically stable. On repeat evaluation patient had nonfocal neurologic exam, had resolving headache. Patient has history of previous headaches therefore workup with further imaging was considered but will be deferred. Patient is appropriate for discharge at this time was given return precautions. Critical Care <Yogesh Basilio MD - Last Filed: 02/24/24 15:01> Critical Care Time Critical Care Time: No
[2024-02-24 14:47] LABS: Basophils # 0.1 K/mm3 (0-0.2); Eosinophils # 0.2 K/mm3 (0.0-0.4); Eosinophils % 2.8 % (0.1-12.0); Hematocrit 44.7 % (42.0-52.0); Hemoglobin 14.7 g/dL (14.1-18.0); Lymphocytes # 1.7 K/mm3 (0.7-4.5); Lymphocytes % 27.2 % (10-50); Mean Corpuscular HGB Conc 32.9 g/dL (31.8-35.4); Mean Corpuscular Hemoglobin 30.7 pg (27.0-31.2); Mean Corpuscular Volume 93.3 fl (80-94); Mean Platelet Volume 8.1 fl (7.4-10.4); Monocytes # 0.3 K/mm3 (0.1-1.0); Monocytes % 5.5 % (1.7-9.3); Neutrophils # 3.9 K/mm3 (1.8-7.8); Neutrophils % 63.4 % (37.0-80.0); Platelet Count 306 K/mm3 (142-424); Red Blood Count 4.79 M/mm3 (4.60-6.20); Red Cell Distribution Width 13.3 % (11.5-17.5); White Blood Count 6.1 K/mm3 (4.8-10.8)
[2024-02-24] MEDS: diphenhydrAMINE 50MG/ML VIAL 25 MG IV (15:34)
[2024-02-24] MEDS: DEXAMETHASONE 4MG/ML 1ML VIAL 10 MG IV (15:35)
[2024-02-24] MEDS: MAGNESIUM SULFATE IN WATER 2 GM/50 ML PIGGYBACK IV (15:35)
[2024-02-24] MEDS: LACTATED RINGERS 1000ML 1,000 ML 999 ML IV (15:35)
[2024-02-24] MEDS: PROCHLORPERAZINE 10MG/2ML VIAL 10 MG IV (15:35)
== END 2024-02-24 16:28 | disposition home or self-care (01) ==
PROVIDERS: Emergency Medicine; Emergency Provider Emergency Medicine; PCP Internal Medicine
DX: G44.89 Other headache syndrome (principal); I10 Essential (primary) hypertension; I45.19 Other right bundle-branch block
CPT/HCPCS: 80053; 84484; 85025; 93005; 96365; 96375; 99285; J3475

== ENCOUNTER 2024-03-14 13:21 | Outpatient (CLI) | payer BC, SELFPAY ==
--- NOTE | 2024-03-14 13:25 | US_ITS ---
FINAL REPORT CLINICAL HISTORY: HTN,AAA,REST PAIN,SKIN DISCOLORATION BILATERAL THIGHS X SEVERAL MONTHS COMPARISON: None FINDINGS: ANKLE-BRACHIAL PRESSURE INDICES Pressure indices are as follows: RIGHT LOWER EXTREMITY: Ankle-brachial pressure index: 1.31 Comments: Normal LEFT LOWER EXTREMITY: Ankle-brachial pressure index: 1.34 Comments: Normal CONCLUSION: No evidence of significant obstructive peripheral vascular disease of the lower extremities Reviewed, Interpreted and Dictated by Blake Browne MD Transcribed by Meg Sanchez Authenticated and [facility]
== END 2024-03-14 23:59 | disposition home or self-care (01) ==
LOC: RT 13:23
PROVIDERS: PCP Internal Medicine; Visit Provider Nurse Practitioner Family
DX: R06.09 Other forms of dyspnea (principal); R94.31 Abnormal electrocardiogram [ECG] [EKG]; R42 Dizziness and giddiness; R93.1 Abnormal findings on diagnostic imaging of heart and coronary circulation; I71.20 Thoracic aortic aneurysm, without rupture, unspecified; I10 Essential (primary) hypertension; I73.9 Peripheral vascular disease, unspecified
CPT/HCPCS: 93923

== ENCOUNTER 2024-04-17 14:48 | Outpatient (CLI) | payer BC, SELFPAY ==
[2024-04-17 15:10] LABS: Basophils % 0.5 % (0.1-2.0); Eosinophils # 0.3 K/mm3 (0.0-0.4); Eosinophils % 3.7 % (0.1-12.0); Hematocrit 41.5 % (42.0-52.0); Hemoglobin 13.8 g/dL (14.1-18.0); Lymphocytes % 29.9 % (10-50); Mean Corpuscular HGB Conc 33.4 g/dL (31.8-35.4); Mean Corpuscular Hemoglobin 30.7 pg (27.0-31.2); Mean Platelet Volume 7.5 fl (7.4-10.4); Monocytes # 0.4 K/mm3 (0.1-1.0); Monocytes % 5.5 % (1.7-9.3); Neutrophils # 4.1 K/mm3 (1.8-7.8); Neutrophils % 60.5 % (37.0-80.0); Platelet Count 283 K/mm3 (142-424); Red Blood Count 4.51 M/mm3 (4.60-6.20); White Blood Count 6.8 K/mm3 (4.8-10.8)
[2024-04-17 15:47] LABS: Chloride 103 mmol/L (98-107); Sodium 137 mmol/L (136-145)
[2024-04-17 15:50] LABS: Blood Urea Nitrogen 20 mg/dl (9-20); Carbon Dioxide 27 mmol/L (22.0-30.0); Estimated Glomerular Filt Rate 60 ml/min (>60); GFR (African American) 73 ML/MIN (>60); Glucose 93 mg/dl (74-100)
== END 2024-04-17 23:59 | disposition home or self-care (01) ==
LOC: LAB 14:48
PROVIDERS: PCP Internal Medicine; Visit Provider Nurse Practitioner Family
DX: K21.9 Gastro-esophageal reflux disease without esophagitis (principal); R07.89 Other chest pain; R93.1 Abnormal findings on diagnostic imaging of heart and coronary circulation; I73.9 Peripheral vascular disease, unspecified; I10 Essential (primary) hypertension; R51.9 Headache, unspecified; I71.21 Aneurysm of the ascending aorta, without rupture; R06.09 Other forms of dyspnea
CPT/HCPCS: 36415; 80048; 85025

== ENCOUNTER 2024-04-23 11:55 | Outpatient (CLI) | payer BC, SELFPAY ==
--- NOTE | 2024-04-23 11:59 | CT_ITS ---
APPROVED REPORT Employment Recruiter: CLINICAL INDICATION Chest Pain TECHNIQUE Image Acquisition: A 128 slice MDCT scanner ([id number] View) was used for data acquisition. A noncontrast coronary calcium scan was performed. A CT attenuation threshold of 130 Hounsfield units (HU) was used for the detection of calcium in contiguous voxels of 1 sq mm in area to be counted as individual lesions. Bolus tracking in the ascending aorta with a threshold of 180 HU was performed. Immediately afterwards, ECG synchronized cardiac CT was then performed from the cardiac base to apex using retrospective gating with ECG tube current modulation. A total of 85 mL of Isovue 370 mg/mL contrast medium was administered at 5 mL/sec followed by a saline flush using a biphasic injection protocol. A tube voltage of 120 KVp was used. The patient received the following medications prior to the cardiac CT. 0.8 mg of sublingual nitroglycerin The average heart rate at the time of acquisition was 59 bpm and regular. Image Reconstruction Transaxial images were reconstructed at 0.67 mm slide thickness. Data was reviewed interactively on an advanced workstation capable of 2 and 3-dimensional displays in all conventional reconstruction formats, including multiplanar reformations, maximum intensity projections, curved multiplanar reformations, and volume rendered reconstructions. When applicable, selected routine images describing the relevant coronary anatomy and pathology were saved and sent to PACS. Complications None Technical Quality Overall image quality was good. Coronary artery opacification was adequate. Total DLP (Dose-Length Product) is 1597.1 mGy-cm. The reported value represents the total of one or more individual components during the CT acquisition of this date and at this time, and as such, the same value may appear in more than one CT report depending on the interpreting/reporting physicians. COMPARISON None FINDINGS CT Coronary Calcium Scoring LMA (Left Main Artery) = 53 LAD (Left Anterior Descending) = 52 LCX (Left Coronary Circumflex) = 24 RCA (Right Coronary Artery) = 79 Total Calcium Score = 208 using the AJ-130 method. The observed calcium score of 208 is at 61st percentile for subjects of the same age, sex, and race/ethnicity. The interpretation of the calcium heart score is based on the following continuum*: 0 = no calcified plaque detected (risk of coronary artery disease is very low ??? less than 5%) 1-10 = calcium detected in extremely minimal levels (risk of coronary diseases is still low ??? less than 10%) 11-100 = mild levels of plaque detected with certainty (mild or minimal narrowing of heart arteries is likely) 101-400 = definite,at least moderate levels of plaque detected (relatively high risk of a heart attack within 3-5 years) >401-999 = extensive levels of plaque detected (high risk of heart attack, high levels of vascular disease are present, high likelihood of at least one significant coronary narrowing) *The calcium heart score quantifies the burden of coronary calcification/plaque in the coronary arteries. The calcium heart score is not able to evaluate the presence or burden of non-calcified (i.e. soft) plaque. There is also identifiable calcification in the mitral annulus. Coronary CT Angiography The coronary arterial system is right dominant. Quantitative Stenosis Grading: Left Main (LM): The left main originates normally from the left sinus of Valsalva. The LM trifurcates into the left anterior descending artery, ramus intermedius, and left circumflex artery. There is calcified plaque in the distal LM with < 25% luminal stenosis. Left Anterior Descending (LAD) and Diagonal Branches: The LAD gives off 3 diagonal branch(es). There is calcified plaque in the proximal LAD, with < 25% stenosis. There is no evidence of LAD-myocardial bridge. Ramus-intermedius (RI): The RI is patent. Left Circumflex (LCX) and Obtuse Marginals (OM): The LCX gives off 1 Obtuse Marginal (OM) branch(es). There is calcified plaque in the proximal LCx, with no evidence of luminal stenosis. Right Coronary Artery (RCA): The RCA originates normally from the right sinus of Valsalva. The RCA gives off a posterior descending artery (PDA) and posterolateral (PL) branches. There is calcified plaque in the proximal RCA, with 25-49% luminal stenosis. Non-Coronary Cardiac Findings: Analysis of the left ventricular (LV) structure and function was performed after 3-D reconstruction of the LV from axial images, with user-corrected automatic contouring for assessment of LV volumes and user-defined reconstruction from oblique planes for measurement of 3-D cardiac structure and function. -The left ventricle systolic function is normal. -There is no left atrial appendage filling defect. Two right pulmonary veins and two left pulmonary veins drain normally into the left atrium. -No pericardial thickening or calcification. -Central and branch pulmonary arteries in the [id number] are unremarkable. -Thoracic aorta within the visualized thoracic aortic-branches in the [id number]-ri-ocfe is unremarkable. Extracardiac Structures No significant extra-cardiac findings. Note, however, that this study is focused on the cardiac findings. IMPRESSION -Presence of coronary calcification with an Agatston score = 208 using the AJ-130 method. -The observed calcium score of 208 is at 61st percentile for subjects of the same age, sex, and race/ethnicity. -Mild, nonobstructive atherosclerotic plaque present, with no evidence of significant flow-limiting atherosclerosis of the coronary arteries. -CAD-RADS 2. Management recommendations per ACC/AHA guidelines*, as clinically appropriate. *Recommendations: CAD RADS 0: Reassurance. Consider non-atherosclerotic causes of chest pain. CAD RADS 1: Consider non-atherosclerotic causes of chest pain. Consider preventive therapy and risk factor modification. CAD RADS 2: Consider non-atherosclerotic causes of chest pain. Consider preventive therapy and risk factor modification, particularly for patients with nonobstructive plaque in multiple segments. CAD RADS 3: Consider further functional testing. Consider symptom-guided anti-ischemic and preventive pharmacotherapy as well as risk factor modification per published guideline statements. CAD RADS 4A: Consider further functional testing or invasive coronary angiography with revascularization per published guideline statements. Consider symptom-guided anti-ischemic and preventive pharmacotherapy as well as risk factor modification per published guideline statements. CAD RADS 4B: Invasive coronary angiography recommended with revascularization per published guideline statements. Consider symptom-guided anti-ischemic and preventive pharmacotherapy as well as risk factor modification per published guideline statements. CAD RADS 5: Consider invasive angiography and/or viability assessment with revascularization per published guideline statements. Consider symptom-guided anti-ischemic and preventive pharmacotherapy as well as risk factor modification per published guideline statements. CRITICAL RESULT None COMMUNICATION Per this written report The coronary and cardiac findings of this CCTA were reviewed, reported, and signed by Roland Bustillo MD (Slip Presser) Conclusion Electronically signed by : Oralia Bustillo MD 04/29/2024 12:26:18
[2024-04-23 12:17] VITALS: BP 116/74; PULSE 57; RESP 16; TEMP 36.4; O2SAT 100
[2024-04-23 12:38] VITALS: BP 122/81; PULSE 64; RESP 16; O2SAT 99
[2024-04-23] MEDS: NITROGLYCERIN 0.4MG SL TABLET SL (12:38)
[2024-04-23 12:41] VITALS: BP 131/83; PULSE 60; RESP 16; O2SAT 100
[2024-04-23 12:44] VITALS: BP 94/57; PULSE 64; RESP 18; O2SAT 99
[2024-04-23 12:47] VITALS: BP 92/49; PULSE 61; RESP 16; O2SAT 99
[2024-04-23] MEDS: 0.9 % SODIUM CHLORIDE 50 ML VIAL IV (12:59)
[2024-04-23] MEDS: IOPAMIDOL-370 (76%);100ML BOTTLE 85 ML IV (12:59)
[2024-04-23] MEDS: SODIUM CHLORIDE 0.9% 10ML SYR (RAD ONLY) 10 ML IV (12:59)
[2024-04-23 13:01] VITALS: BP 105/65; PULSE 60; RESP 16; O2SAT 99
[2024-04-23 13:03] VITALS: BMI 29.7
== END 2024-04-23 13:06 | disposition home or self-care (01) ==
PROVIDERS: PCP Internal Medicine; Visit Provider Nurse Practitioner Family
DX: R07.89 Other chest pain (principal); R06.09 Other forms of dyspnea
CPT/HCPCS: 75574; Q9967

== ENCOUNTER 2024-07-16 13:17 | Outpatient (CLI) | payer BC, SELFPAY ==
[2024-07-16 13:34] LABS: Basophils % 0.6 % (0.1-2.0); Eosinophils # 0.2 K/mm3 (0.0-0.4); Eosinophils % 3.2 % (0.1-12.0); Hematocrit 41.3 % (42.0-52.0); Hemoglobin 13.2 g/dL (14.1-18.0); Lymphocytes # 1.6 K/mm3 (0.7-4.5); Lymphocytes % 23.3 % (10-50); Mean Corpuscular Hemoglobin 30.5 pg (27.0-31.2); Mean Corpuscular Volume 95.3 fl (80-94); Mean Platelet Volume 7.7 fl (7.4-10.4); Monocytes # 0.3 K/mm3 (0.1-1.0); Monocytes % 4.4 % (1.7-9.3); Neutrophils # 4.6 K/mm3 (1.8-7.8); Neutrophils % 68.5 % (37.0-80.0); Platelet Count 285 K/mm3 (142-424); Red Blood Count 4.33 M/mm3 (4.60-6.20); Red Cell Distribution Width 13.7 % (11.5-17.5); White Blood Count 6.7 K/mm3 (4.8-10.8)
[2024-07-16 14:45] LABS: Alanine Aminotransferase 23 U/L (12-78); Albumin Level 3.9 g/dl (3.5-5.0); Alkaline Phosphatase 78 U/L (38-126); Aspartate Amino Transferase 25 U/L (17-59); Bilirubin,Direct 0.2 mg/dl (0.0-0.4); Bilirubin,Indirect 0.3 mg/dL (0.0-0.9); Bilirubin,Total 0.5 mg/dl (0.2-1.3); Bilirubin,Unconjugated 0.4 mg/dL (0.0-1.1); Blood Urea Nitrogen 18 mg/dl (9-20); Calcium 9.4 mg/dl (8.4-10.2); Carbon Dioxide 27 mmol/L (22.0-30.0); Chloride 106 mmol/L (98-107); Chol/HDL Ratio 2.3 (1-3.5); Cholesterol 100 mg/dl (140-200); Estimated Glomerular Filt Rate 67 ml/min (>60); GFR (African American) 81 ML/MIN (>60); Glucose 88 mg/dl (74-100); HDL Cholesterol 43 mg/dl (40-60); Magnesium 1.8 mg/dl (1.6-2.3); Sodium 137 mmol/L (136-145); Total Protein,Serum 6.5 g/dl (6.3-8.2); Triglycerides 76 mg/dl (30-150); VLDL Cholesterol 15 mg/dL (0-40)
[2024-07-16 14:56] LABS: Direct LDL Cholesterol 37.59 mg/dL (100-129)
[2024-07-16 15:00] LABS: Free T4 (Free Thyroxine) 1.05 ng/dl (0.78-2.19)
[2024-07-16 15:14] LABS: Thyroid Stimulating Hormone 0.86 uIU/mL (0.465-4.68)
== END 2024-07-16 23:59 | disposition home or self-care (01) ==
LOC: LAB 13:19
PROVIDERS: PCP Internal Medicine; Visit Provider Nurse Practitioner Family
DX: I25.10 Atherosclerotic heart disease of native coronary artery without angina pectoris (principal); E78.49 Other hyperlipidemia; I10 Essential (primary) hypertension; R94.31 Abnormal electrocardiogram [ECG] [EKG]
CPT/HCPCS: 36415; 80048; 80061; 80076; 83735; 84439; 84443; 85025

== ENCOUNTER 2024-07-19 13:21 | Outpatient (CLI) | payer BC, SELFPAY ==
--- NOTE | 2024-07-19 13:21 | CA_ITS ---
FINAL REPORT TECHNIQUE: Sonographic images of the veins of the right upper extremity were obtained from axilla to antecubital fossa. Additionally, images of the internal jugular vein and subclavian vein were also obtained. CLINICAL HISTORY: right upper arm swelling. Patient states he had a venipuncture 07/17/24. When medical personnel placed the tourniquet a knot appeared in the left anterior proximal upper arm. He states he had never noticed the knot before and it's gone now. HTN, HLD, 81 mg ASA daily. COMPARISON: None FINDINGS: The veins of the right upper extremity are compressible from axilla to antecubital fossa. Blood flow is demonstrated by both color and spectral Doppler as well. The internal jugular vein and subclavian vein are also patent. IMPRESSION: No evidence of venous thrombosis of the right upper extremity. Reviewed, Interpreted and Dictated by Octaviano Coffman III, MD Transcribed by Meg Sanchez Authenticated and [facility]
== END 2024-07-19 23:59 | disposition home or self-care (01) ==
LOC: RT 13:21
PROVIDERS: PCP Internal Medicine; Visit Provider Nurse Practitioner Family
DX: R22.31 Localized swelling, mass and lump, right upper limb (principal); I10 Essential (primary) hypertension; I25.10 Atherosclerotic heart disease of native coronary artery without angina pectoris; R94.31 Abnormal electrocardiogram [ECG] [EKG]; R42 Dizziness and giddiness
CPT/HCPCS: 93971

== ENCOUNTER 2025-03-05 09:03 | Outpatient (CLI) | payer MEDICARE, BC, SELFPAY ==
[2025-03-05 09:24] LABS: Basophils % 0.3 % (0.1-2.0); Eosinophils # 0.2 Kmm3 (0.0-0.4); Eosinophils % 3.8 % (0.1-12.0); Hematocrit 41.6 % (42.0-52.0); Hemoglobin 13.9 g/dL (14.1-18.0); Lymphocytes # 1.6 K/mm3 (0.7-4.5); Lymphocytes % 24.6 % (10-50); Mean Corpuscular HGB Conc 33.4 g/dL (31.8-35.4); Mean Corpuscular Hemoglobin 30.3 pg (27.0-31.2); Mean Corpuscular Volume 90.8 fl (80-94); Mean Platelet Volume 9.5 fl (7.4-10.4); Monocytes # 0.6 K/mm3 (0.1-1.0); Monocytes % 9.6 % (1.7-9.3); Neutrophils # 3.9 K/mm3 (1.8-7.8); Neutrophils % 61.5 % (37.0-80.0); Nucleated Red Blood Cells # 0 10^3/uL; Nucleated Red Blood Cells % 0 %; Platelet Count 249 K/mm3 (142-424); Red Blood Count 4.58 M/mm3 (4.60-6.20); Red Cell Distribution Width 12.9 % (11.5-17.5); Red Cell Distribution Width-SD 42.7 fL; White Blood Count 6.4 K/mm3 (4.8-10.8)
--- NOTE | 2025-03-05 09:30 | CT_ITS ---
FINAL REPORT TECHNIQUE: Axial imaging of the chest is obtained after the administration of contrast. 3-D MIP reformatted images were also obtained and reviewed. This study was performed with techniques to keep radiation doses as low as reasonably achievable (ALARA). Individualized dose reduction techniques using automated exposure control or adjustment of mA and/or kV according to the patient's size were employed. CLINICAL HISTORY: dilation of ascending aorta COMPARISON: None FINDINGS: The pulmonary arteries are well filled. There is no evidence of pulmonary embolus. There is no aortic dissection. Heart size is normal. The diameter of the ascending thoracic aorta is normal. There is no mediastinal, hilar, or axillary lymphadenopathy. The lungs are clear. There is no pleural or pericardial effusion. Limited evaluation of the upper abdomen is without acute abnormality. No acute osseous abnormality. IMPRESSION: The diameter of the ascending thoracic aorta is normal. No evidence of an aortic aneurysm is identified in the thoracic aorta. Reviewed, Interpreted and Dictated by Lu Palmer MD Transcribed by Meg Sanchez Authenticated and [facility]
--- NOTE | 2025-03-05 10:00 | CT_ITS ---
FINAL REPORT TECHNIQUE: CT examination of the lumbar spine was performed after the administration of intravenous contrast using axial images from T11 through the mid sacrum. Multiplanar reconstructions in the sagittal and coronal planes were performed. This study was performed with techniques to keep radiation doses as low as reasonably achievable (ALARA). Individualized dose reduction techniques using automated exposure control or adjustment of mA and/or kV according to the patient's size were employed. CLINICAL HISTORY: Right low back pain just below the waistline COMPARISON: None FINDINGS: CT LUMBAR SPINE WITH CONTRAST: CT images of the lumbar spine reveal normal alignment of the lumbar vertebral bodies. No fracture is identified. Multilevel degenerative disc disease is present. There are broad-based disc osteophyte complexes present at multiple levels. There is moderate to severe canal stenosis at the L2-3, L3-4, and L4-5 levels. Bilateral neural foraminal stenosis is noted at multiple levels as well. No acute paraspinal abnormality is identified. IMPRESSION: Multilevel disc disease as described above, with multilevel canal and neural foraminal narrowing. Recommend MRI of the lumbar spine for further evaluation if clinically indicated. Reviewed, Interpreted and Dictated by Lu Palmer MD Transcribed by Meg Sanchez Authenticated and [facility]
[2025-03-05 10:01] LABS: Alanine Aminotransferase 20 U/L (12-78); Albumin Level 4.2 g/dl (3.5-5.0); Alkaline Phosphatase 71 U/L (38-126); Anion Gap 6.7 mEq/L (5-15); Aspartate Amino Transferase 22 U/L (17-59); Bilirubin,Direct 0.1 mg/dl (0.0-0.4); Bilirubin,Indirect 0.5 mg/dL (0.0-0.9); Bilirubin,Total 0.6 mg/dl (0.2-1.3); Bilirubin,Unconjugated 0.5 mg/dL (0.0-1.1); Blood Urea Nitrogen 11 mg/dl (9-20); Calcium 9.6 mg/dl (8.4-10.2); Carbon Dioxide 29 mmol/L (22.0-30.0); Chloride 105 mmol/L (98-107); Chol/HDL Ratio 2.3 (1-3.5); Cholesterol 124 mg/dl (140-200); Estimated Glomerular Filt Rate 67 ml/min (>60); GFR (African American) 81 ML/MIN (>60); Glucose 96 mg/dl (74-100); HDL Cholesterol 54 mg/dl (40-60); Magnesium 2.1 mg/dl (1.6-2.3); Potassium 4.7 mmoL/L (3.5-5.1); Sodium 136 mmol/L (136-145); Total Protein,Serum 6.9 g/dl (6.3-8.2); Triglycerides 114 mg/dl (30-150); VLDL Cholesterol 23 mg/dL (0-40)
[2025-03-05 10:12] LABS: Direct LDL Cholesterol 39.11 mg/dL (100-129)
[2025-03-05 10:18] LABS: Free T4 (Free Thyroxine) 1.43 ng/dl (0.78-2.19)
[2025-03-05] MEDS: SODIUM CHLORIDE 0.9% 10ML SYR (RAD ONLY) 10 ML IV (10:27)
[2025-03-05] MEDS: IOPAMIDOL-370 (76%);100ML BOTTLE 100 ML IV (10:27)
[2025-03-05] MEDS: 0.9 % SODIUM CHLORIDE 50 ML VIAL IV (10:27)
[2025-03-05 10:32] LABS: Thyroid Stimulating Hormone 0.94 uIU/mL (0.465-4.68)
== END 2025-03-05 23:59 | disposition home or self-care (01) ==
LOC: RAD 09:05
PROVIDERS: PCP Internal Medicine; Visit Provider Nurse Practitioner Family
DX: I25.10 Atherosclerotic heart disease of native coronary artery without angina pectoris (principal); E78.49 Other hyperlipidemia; I10 Essential (primary) hypertension; R94.31 Abnormal electrocardiogram [ECG] [EKG]; R42 Dizziness and giddiness; S39.012A Strain of muscle, fascia and tendon of lower back, initial encounter; I71.20 Thoracic aortic aneurysm, without rupture, unspecified
CPT/HCPCS: 36415; 71275; 72132; 80048; 80061; 80076; 83735; 84439; 84443; 85025; Q9967

== ENCOUNTER 2025-03-20 09:23 | Outpatient (CLI) | payer MEDICARE, BC, SELFPAY ==
--- NOTE | 2025-03-20 09:45 | MR_ITS ---
FINAL REPORT TECHNIQUE: Multiplanar and multisequence imaging of the lumbar spine was obtained without contrast. CLINICAL HISTORY: Severe spinal stenosis, back pain, PAIN IN THE RIGHT SI JOINT AREA COMPARISON: None FINDINGS: There is normal alignment in the sagittal plane of the lumbar vertebral bodies. Vertebral body height is preserved. The spinal cord ends at the level of L1. There is normal signal intensity within the substance of the distal spinal cord. No acute bone marrow edema or pathologic marrow replacement. Left renal cysts are noted. No acute paraspinal abnormality is identified. L1-2: Right paracentral disc extrusion with disc material ascending along the posterior inferior aspect of L1. This is superimposed on annular bulge with bilateral facet osteoarthropathy. Myxk-hh-nlskjbtc central canal stenosis asymmetric to the right. No foraminal narrowing. L2-3: Annular disc bulge with degenerative endplate changes and facet osteoarthropathy. Duih-sz-xivjefko central canal stenosis. Moderate bilateral foraminal narrowing. L3-4: Annular disc bulge with degenerative endplate changes and facet osteoarthropathy. Moderate to severe central canal stenosis. Moderate bilateral foraminal narrowing. L4-5: Annular disc bulge with degenerative endplate changes and facet osteoarthropathy. Moderate to severe central canal stenosis. Moderate to severe bilateral foraminal narrowing. L5-S1: Annular disc bulge. No central canal stenosis. Mild left foraminal narrowing. IMPRESSION: Right paracentral extruded disc at L1-2 with disc material ascending along the posterior aspect of L1. Multilevel degenerative disc disease as above. Reviewed, Interpreted and Dictated by Lu Palmer MD Transcribed by Delia Chen Authenticated and [facility]
== END 2025-03-20 23:59 | disposition home or self-care (01) ==
LOC: RAD 09:24
PROVIDERS: PCP Internal Medicine; Visit Provider Internal Medicine
DX: M48.061 Spinal stenosis, lumbar region without neurogenic claudication (principal); M54.50 Low back pain, unspecified
CPT/HCPCS: 72148

== ENCOUNTER 2025-04-09 08:53 | Outpatient (RCR) | payer BC, SELFPAY ==
--- NOTE | 2025-04-09 10:33 | HMH.PTOPEV ---
PT Outpatient Evaluation Rehab PT Outpatient Evaluation Start: 04/09/25 09:39 Freq: Status: Active Protocol: Document 04/09/25 09:39 YANET (Rec: 04/09/25 10:31 JERAMIEMIGUEL [id number]) E-signed By Ezra Fajardo, PT Outpatient Therapy Subjective History Subjective History The pt is a 70 yom who is referred to [facility] outpatient PT with complaints of chronic LBP that began several years ago but has recently worsened in the past 6 months. Pt reports that his pain is primarily on the R side of his lower back and into his buttock. Reports that when he makes a sudden movement, he will have a very sharp pain into his low back that will then linger as an ache for several hours. Pt reports that his dr prescribed prednisone which has helped subside his LBP but he does not like it makes him feel in other ways. 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 He reports that he has to transfer her down 7 stairs in a wheelchair which causes him to be in pain. Denies Numbness and tingling and LE symptoms. Recent MRI Results: Right paracentral extruded disc at L1-2 with disc material ascending along the posterior aspect of L1. Multilevel degenerative disc disease as above. Occupation: Owns local [employer] PMH: Hiatal hernia, Ascending Aortic Aneurysm, Bundle Block New diagnosis of cancer in past 12 No months? Chief Complaint Pain,Stiff Symptom Type Ache,Sharp Symptoms Relieved By Heat,OTC Meds,Prescription Meds Symptoms Aggravated By Bending/Stooping,Twisting, Lifting Prior Functional Limitations None Current Functional Limitations Lifting,Housework,Standing, Squatting,Walking Symptom Description Constant but Variable,Activity Dependent Level of pain today (0-10) 3 Pain scale - at its best (0-10) 0 Pain scale - at its worst (0-10) 10 Lumbopelvic Eval Posture Thoracic Spine Posture Standing Position Increased Kyphosis Lumbar Spine Posture Standing Position Flexed Palapation tenderness right lumbar spinal tenderness Yes: 3/4 TTP to L4-S1 paraspinal tenderness Yes: 3/4 TTP to L4-S1 Lumbar/Sacral Palpation Findings Tenderness,Trigger Point Accessory Movement L4 right L5 right S1 right Range of Motion Lumbar Spine Active Flexion Range of 25% (painful) Motion (degrees) Lumbar Spine Active Extension Range of 40% Motion (degrees) Left Lumbar Spine Lateral Flexion Active 50% Range of Motion (degrees) Right Lumbar Spine Lateral Flexion 50% Active Range of Motion (degrees) Lumbar Spine ROM Limitations Soft Tissue Tightness,Pain Manual Muscle Test Bilateral Knee Extension Strength Grade 4 Good Knee Flexion Strength Grade 4 Good Hip Flexion Strength Grade 4 Good Hip Abduction Strength Grade 2 Poor Hip Adduction Strength Grade 3- Fair- Gluteus Edwin Strength Grade 3 Fair DTR Rt Patellar 1+ Lt Patellar 1+ Rt Gastroc/Soleus 1+ Lt Gastroc/Soleus 1+ Altered Sensation Bilateral Comment Intact to LT globally Special Tests Lumbar Spine Screen Positive Forward Bending Test- Standing Positive Left,Positive Right Hip Scouring (Quadrant) Test Positive Left,Positive Right Hip Ga (NARCISA) Test Negative Left,Negative Right Hip Bernardo Test Negative Left,Negative Right Sciatic Nerve Tension Test Negative Left,Negative Right Crossed Straight Leg Raise Test Negative Left,Negative Right Hip Jamee's Test Negative Left,Negative Right Sacroiliac Joint Compression Test Negative Left,Negative Right Sacroiliac Joint Distraction Test Negative Left,Negative Right Lumbar [place] Distraction Test/Manual Positive Traction Oswestry Index Section 1 Pain Intensity The pain comes and goes and is severe Section 2 Personal Care (Washing,Dresing) change my way of washing or dressing in order to avoid pain Section 3 Lifting I can lift heavy weights, but it gives me extra pain Section 4 Walking I cannot walk more than one mile wihtout increasing pain Section 5 Sitting I can sit in any chair for as long as I like Section 6 Standing I cannot stand more than 1 hour without increasing pain Section 7 Sleeping I get pain in bed, but it does not prevent me from sleeping well Section 8 Social Life My social life is normal but increases the degree of pain Section 9 Traveling I get extra pain while traveling, but it does not compel me to seek al Section 10 Changing Degreee of Pain My pain is gradually getting worse Score and Risk Level Oswestry Sc 17 Oswestry Risk Level Moderate Disability Outpatient Therapy Assessment Impairments Problems/Impairmments Palpation Tenderness,Impaired Range of Motion,Impaired Strength,Impaired Walking, Impaired Standing,Impaired Household Care,Impaired Stair Climbing,Subjective C/O Pain Prognosis Rehab Potential Good Clinical Impression Consistent with Diagnosis Yes Consistent with Low back pain with mobility deficit Additional details: M47.817 M48.061 M54.50 Short Term Goals Number of Weeks 4 Decreased Palpation Tenderness Yes: 2/4 to TTP assessment above Increase Range of Motion Yes: 50% WNL lumbar flexion and extension without pain Increase Strength Yes: 4/5 to B hips/knees Improve Oswestry Score Yes: <12 Decrease Subjective C/O Pain Yes: 03/22 with above assessment Patient to be Ind w/ HEP Yes Nursing Home Goals Number of Weeks 8 Decreased Palpation Tenderness Yes: 0-1/4 to TTP assessment above Increase Range of Motion Yes: 75% WNL Lumbar Flexion/ Extension Increase Strength Yes: 5/5 to B hips/knees Improve Tolerance to Work Activities Yes: Able to do normal day's work without increasing symptoms Improve Oswestry Score Yes: <7 Decrease Subjective C/O Pain Yes: 2-10 with above assessment Improve Self Care/Self Management Yes: Able to care for mother without increasing symptoms Patient to be Ind w/ Advanced HEP Yes Outpatient Therapy Plan of Care Treatment Plan May Include Therapeutic Exercise Including Home Yes Exercise Program Manual Therapy Techniques Yes Neuromuscular Re-education Yes Therapeutic Activities to Return to Yes Previous Functional/Work Level Gait Training Yes ADL/Self Care Education Yes Mechanical Traction Yes Dry Needling Yes Thermal Modalities Yes Electrical Stimulation Yes Ultrasound/Phonophoresis Yes Iontophoresis Yes Manual Lymphatic Drainage Yes Eval/Re-Eval Yes Frequency Times per week 2 Duration Number of Weeks 8 Addendums This patient is a candidate for social No or vocational rehab? Patient/Guardian verbally acknowledges Yes understanding of treatment program and consents to further treatment? Patient/Guardian verbally acknowledges Yes understanding of diagnosis, prognosis and goals for treatment? Eval Complexity PT Charges 40996 - High Complexity Shoulder/Elbow Eval Shoulder Objective Measurements Elbow Objective Measurements PHYSICIAN CERTIFICATION: I certify the specified therapy services for Khadar Trammell are required, authorized, and reviewed every 30 days.
== END 2025-04-09 23:59 | disposition home or self-care (01) ==
LOC: PT 08:53
PROVIDERS: Visit Provider Internal Medicine
DX: M47.817 Spondylosis without myelopathy or radiculopathy, lumbosacral region (principal); M48.061 Spinal stenosis, lumbar region without neurogenic claudication
CPT/HCPCS: 97163

== ENCOUNTER 2025-05-08 08:00 | Outpatient (RCR) | payer BC, SELFPAY ==
--- NOTE | 2025-05-08 10:03 | HMH.RHREAS ---
Rehab Reassessment Rehab OP Re-assessment Start: 04/28/25 08:02 Freq: Status: Active Protocol: Document 05/08/25 08:18 YANET (Rec: 05/08/25 10:03 YANET [id number]) E-signed By Ezra Fajardo, PT Oswestry Index Section 1 Pain Intensity The pain comes and goes and is severe Section 2 Personal Care ( my way of washing or dressing even though it causes Washing,Dresing) some pain Section 3 Lifting I can lift heavy weights, but it gives me extra pain Section 4 Walking I cannot walk at all without increasing pain Section 5 Sitting Pain prevents me from sitting for more than 10 minutes Section 6 Standing I cannot stand more than 10 minutes without increasing pain Section 7 Sleeping I get pain in bed, but it does not prevent me from sleeping well Section 8 Social Life My social life is normal but increases the degree of pain Section 9 Traveling I get some pain when traveling, but none of my usual forms of travel m Section 10 Changing Degreee of My pain seems to be getting better, but improvement is Pain slow Score and Risk Level Oswestry Sc 24 Oswestry Risk Level Moderate Disability Rehab Re-assessment Subjective Subjective Pt reports that he is 20-25% improved. Pt reports that traction seemed to really help his symptoms. Pt reports that his pain continues to be the worst at the end of the day. 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 Pt reports that he has returned to work but is unable to do the heavier lifting yet. Reports his pain at a 5/10 throughout today's reassessment. Reports that he would like to continue with PT. Objective Objective Notes FRANCISCO JAVIER: 24 (17 on IE) TTP: 2/4 to L4-S1 Lumbar ROM: - Flexion: 50% pain-free - Extension: 60% pain-free - Lateral Flexion: 60% pain-free MMT: - Hip Flexion: 4/5 - Hip Abduction: 3+/5 - Hip adduction: 4/5 - Knee Extension: 4+/5 - Knee Flexion: 4+/5 Assessment Progress Assessment Progressing as Expected Assessment Notes Pt has undergone one month of skilled PT consisting of lumbar mobility exercises, lumbopelvic motor control, core strengthening, mechanical traction and modalities. Pt has responded favorably and demonstrated modest improvements in his lumbar ROM, strength and pain. The pt continues to present below baseline and would continue to benefit from skilled PT to address his remaining impairments and to promote a return to his PLOF. Patient goals met ST,2,3,5 LT Plan Plan Continue as per initial POC. Lumbar Traction. Frequency of Therapy 1-2/week Duration of therapy 4 weeks Time and Billing Re-Eval Time 10 Re-Eval Billing 1 Units Charge for PT Yes reassessment? PHYSICIAN CERTIFICATION: I certify the specified therapy services for Khadar Trammell are required, authorized, and reviewed every 30 days.
== END 2025-05-08 23:59 | disposition home or self-care (01) ==
LOC: PT 08:00
PROVIDERS: Visit Provider Internal Medicine
DX: M54.59 Other low back pain (principal)
CPT/HCPCS: 97012; 97014; 97110; 97164; 97530; G0283

== ENCOUNTER 2025-06-11 09:00 | Outpatient (RCR) | payer BC, SELFPAY ==
--- NOTE | 2025-06-11 10:13 | [facility]H.RHREAS ---
Rehab Reassessment Rehab OP Re-assessment Start: 05/13/25 13:07 Freq: Status: Active Protocol: Document 06/11/25 10:00 JANKI (Rec: 06/11/25 10:13 PHORNE [id number]) E-signed By Jani Clemons, PT Oswestry Index Section 1 Pain Intensity The pain comes and goes and is severe Section 2 Personal Care ( change my way of washing or dressing in order to avoid Washing,Dresing) pain Section 3 Lifting I can lift heavy weights, but it gives me extra pain Section 4 Walking I cannot walk more than 1/4 mile without increasing pain Section 5 Sitting Pain prevents me from sitting for more than one hour Section 6 Standing I cannot stand more than 10 minutes without increasing pain Section 7 Sleeping Because of my pain, my normal night's sleep is less than 6 hours sleep Section 8 Social Life My social life is normal but increases the degree of pain Section 9 Traveling I get extra pain while traveling, but it does not compel me to seek al Section 10 Changing Degreee of My pain seems to be getting better, but improvement is Pain slow Score and Risk Level Oswestry Sc 22 Oswestry Risk Level Moderate Disability Rehab Re-assessment Subjective Subjective Pt reports he feels ~50% better now vs his initial evaluation regarding his low back pain and overall mobility. He reports less pain with activity, but continues to have sharp pains intermittently when he stands up out of a hard chair. Continues to report intermittent B LE pain also. He does report less pain after therapy treatments for ~ 2 days before the pain returns. Objective Objective Notes FRANCISCO JAVIER: 22 (17 on IE) TTP: 1/4 to L4-S1 Pain: 3/10 at this time in low back Lumbar ROM: - Flexion: 75% pain-free - Extension: 75% pain-free - Lateral Flexion: 75% pain-free R, mild increased pain on L MMT: - Hip Flexion: 4+/5 - Hip Abduction: 4+/5 - Hip adduction: 4+/5 - Knee Extension: 5/5 - Knee Flexion: 5/5 Assessment Progress Assessment Progressing as Expected Assessment Notes Pt has undergone 2 mos of skilled PT consisting of lumbar mobility exercises, lumbopelvic motor control, core strengthening, mechanical traction and modalities. Pt has responded favorably and demonstrated modest improvements in his lumbar ROM, strength and pain. The pt continues to present below baseline and would continue to benefit from skilled PT to address his remaining impairments and to promote a return to his PLOF. Patient goals met STG: Pt has met 4 out of 6 STG at this time with remaining goals to reduce FRANCISCO JAVIER score to <12 and to be independent with HEP continuing to be be appropriate. LTG: Pt has met 2 out of 8 LTG at this time with remaining goals for LE MMT 5/5 to B hips/knees, Able to do normal day's work without increasing symptoms, FRANCISCO JAVIER score <7, Subjective pain 2-3/10 with above assessment, Improve self care of able to care for mother without increasing symptoms, and independent with advanced HEP remain appropriate to continue. Plan Plan Continue with POC as indicted per initial evaluation including: Frequency of Therapy 2 x/wk Duration of Therapy 4 wks Therapeutic Exercise Yes Including Home Exercise Program Manual Therapy Yes Techniques Neuromuscular Re- Yes education Therapeutic Yes Activities to Return to Previous Functional/Work Level ADL/Self Care Yes Education Mechanical Traction Yes Thermal Modalities Yes Electrical Yes Stimulation Ultrasound/ Yes Phonophoresis Orthotics/Bracing/ Yes Splinting Massage Yes Eval/Re-Eval Yes Time and Billing Re-Eval Time 16 Re-Eval Billing 0 Units Charge for PT No reassessment? PHYSICIAN CERTIFICATION: I certify the specified therapy services for Khadar Trammell are required, authorized, and reviewed every 30 days.
== END 2025-06-11 23:59 | disposition home or self-care (01) ==
LOC: PT 09:00
PROVIDERS: Visit Provider Internal Medicine
DX: M54.50 Low back pain, unspecified (principal)
CPT/HCPCS: 97012; 97014; 97110; G0283

== ENCOUNTER 2025-07-09 09:00 | Outpatient (RCR) | payer BC, SELFPAY | END 2025-07-09 23:59 | disposition home or self-care (01) | LOC: PT 09:00 | PROVIDERS: Visit Provider Internal Medicine | DX: M53.86 Other specified dorsopathies, lumbar region (principal) | CPT/HCPCS: 97012; 97014; 97110; G0283 ==